=== PATIENT | female | born 1965 | race Caucasian/White ===

== ENCOUNTER → 2017-12-06 | Outpatient (CLI) | payer BC ==
--- NOTE | 2017-12-06 16:23 | MR ---
EXAMINATION TYPE: MR cspine/tspine wo con DATE OF EXAM: 12/06/2017 COMPARISON: NONE HISTORY: Thoracic spine pain/ Disc deg,cervical CONTRAST: Performed utilizing 0 mL intravenous Gadavist gadolinium contrast. TECHNIQUE: Multiplanar multiecho imaging on a 3.0 Nina magnet is performed through the cervical spin e. FINDINGS: The craniovertebral junction is normal. Vertebral body alignment is normal. Disc desicca tion is in the upper cervical spine. Some mild diffuse loss of disc height is within the mid cervical spine. C7-T1: No focal disc herniation or significant disc bulge is evident. No spinal canal stenosis or n eural foraminal stenosis is present. C6-7: Mild central focal bulge is present. Some increased signal centrally on T2 type sequences sugge stive small annular tear may be present. No disc herniation is evident. No cord contact is evident. N o spinal canal stenosis or neural foraminal stenosis is present.. C5-6: Mild broad-based disc bulge is present with anterior thecal sac flattening. This comes in close approximation with the spinal cord. No spinal canal stenosis present. Uncovertebral joint hypertroph y is present with mild right foraminal narrowing.. C4-5: No focal disc herniation or significant disc bulge is evident. No spinal canal stenosis or marcello ral foraminal stenosis is present. C3-4: No focal disc herniation or significant disc bulge is evident. No spinal canal stenosis or marcello ral foraminal stenosis is present. C2-3: No focal disc herniation or significant disc bulge is evident. No spinal canal stenosis or marcello ral foraminal stenosis is present. Spinal cord maintains normal signal through its visualized course. Vertebral body heights are preserv ed. IMPRESSIONS: 1. Mild degenerative disc changes C5-6 and C6-7 discussed above. EXAMINATION TYPE: MR cspine/tspine wo con DATE OF EXAM: 12/06/2017 COMPARISON: NONE HISTORY: Thoracic spine pain/ Disc deg,cervical CONTRAST: Performed utilizing 0 mL intravenous Gadavist gadolinium contrast. TECHNIQUE: Multiplanar, multiecho imaging on a 3.0 Nina magnet is performed through the thoracic spi ne. Spinal cord maintains normal signal through its visualized course. Vertebral body alignment is normal. Vertebral body heights are preserved. Disc heights are preserved. Minimal disc desiccation is present to the mid thoracic spine. T9-T10: Some mild right paracentral disc bulge has mild anterior thecal sac compression. No cord cont act is evident. No spinal canal stenosis is present. Right paracentral disc bulge at T8-9 is present with moderate anterior thecal sac compression. No cord contact is evident. No spinal canal stenosis i s evident. T7-8: There is right paracentral disc herniation with mild anterior thecal sac compression. No AP spi nal canal stenosis present. Neural foramen are patent. No spinal canal stenosis is evident. IMPRESSIONS: 1. Mild right paracentral disc bulge, T7-8, T8-9, T9-T10. Minimal herniation may be present T7-8 righ t paracentral region.
== END | disposition home or self-care (01) ==
LOC: RADMRIMAIN 12:53
PROVIDERS: ATTEND Family Medicine
DX: M51.24 Other intervertebral disc displacement, thoracic region (principal); M47.812 Spondylosis without myelopathy or radiculopathy, cervical region; M50.30 Other cervical disc degeneration, unspecified cervical region
CPT/HCPCS: 72141; 72146

== ENCOUNTER → 2019-01-27 | Outpatient (CLI) | payer BC ==
--- NOTE | 2019-01-27 14:57 | US ---
EXAMINATION TYPE: US kidneys/renal and bladder DATE OF EXAM: 01/27/2019 COMPARISON: MRI thoracic spine February 03, 2018. CLINICAL HISTORY: R10.9 Right flank pain. Right back pain EXAM MEASUREMENTS: Right Kidney: 9.3 x 4.7 x 4.6 cm Left Kidney: 9.6 x 4.6 x 4.2 cm Right Kidney: wnl Left Kidney: wnl Bladder: wnl, distended Bilateral Jets seen There is no evidence for hydronephrosis at this point in time. No nephrolithiasis is seen. No ana s are identified. The urinary bladder is not greatly distended. Bilateral ureteral jets are seen. Adjacent liver is heterogeneously hyperechoic IMPRESSION: No shadowing, renal calculi or hydronephrosis identified bilaterally on images saved.
== END | disposition home or self-care (01) ==
LOC: RADUSWWP 14:12
PROVIDERS: ATTEND Family Medicine
DX: R10.9 Unspecified abdominal pain (principal)
CPT/HCPCS: 76770

== ENCOUNTER → 2019-08-26 | Outpatient (CLI) | payer BC ==
--- NOTE | 2019-09-02 13:18 | MM ---
Reason for exam: additional evaluation requested from prior study. Last mammogram was performed 7 years and 11 months ago. History: Patient is postmenopausal. Took hormonal contraceptives for 6 years. Physical Findings: Nurse Summary: 2cm nodule in the left breast at 11 o'clock (nurse ts). [facility] Diagnostic Mammo w CAD JUDITH Bilateral CC and MLO view(s) were taken. Prior study comparison: September 29, 2011, mammogram, performed at [place]. August 14, 2008, mammogram, performed at [place]. The breast tissue is heterogeneously dense. This may lower the sensitivity of mammography. There are benign appearing round calcifications bilaterally. There is no discrete abnormality. These results were verbally communicated with the patient on 09/02/19. ASSESSMENT: Incomplete: need additional imaging evaluation, BI-RAD 0 RECOMMENDATION: Ultrasound of the left breast. (palpable)
--- NOTE | 2019-09-02 13:19 | USB ---
Reason for exam: additional evaluation requested from abnormal screening. History: Patient is postmenopausal. Took hormonal contraceptives for 6 years. US Breast Limited LT Left limited breast ultrasound including focal area of concern, retroareolar and axilla demonstrates no cystic or solid lesion seen. Benign left axillary lymph node end of study. These results were verbally communicated with the patient on 09/02/19. ASSESSMENT: Negative, BI-RAD 1 RECOMMENDATION: Routine screening mammogram of both breasts in 1 year. Manage on a clinical basis with regard to left palpable.
== END | disposition home or self-care (01) ==
LOC: RADMAMWWP 13:41
PROVIDERS: ATTEND Family Medicine
DX: R92.8 Other abnormal and inconclusive findings on diagnostic imaging of breast (principal)
CPT/HCPCS: 77066

== ENCOUNTER 2020-01-23 07:17 | Emergency (ER) | payer BC ==
[2020-01-23 07:23] VITALS: TEMP 99.8
[2020-01-23] MEDS ORDERED: SODIUM CHLORIDE 0.9% 1,000 ML IV SCH (07:45)
[2020-01-23 08:20] LABS: African American GFR (CKD) >90 (>60 ml/min/1.73 sqM); Anion Gap 6 mmol/L; Blood Urea Nitrogen 19 mg/dL (7-17); Calcium 9.6 mg/dL (8.4-10.2); Carbon Dioxide 29 mmol/L (22-30); Chloride 103 mmol/L (98-107); Glucose 116 mg/dL (74-99); Non-African American GFR(CKD) 87 (>60 ml/min/1.73 sqM); Potassium 3.7 mmol/L (3.5-5.1); Sodium 138 mmol/L (137-145)
[2020-01-23 08:24] LABS: Basophils % (A) 1 %; Eosinophils # (A) 0.1 k/uL (0-0.7); Eosinophils % (A) 2 %; HGB 12.5 gm/dL (11.4-16.0); Lymphocytes # (A) 1.6 k/uL (1.0-4.8); Lymphocytes % (A) 30 %; MCH 29.9 pg (25.0-35.0); MCHC 33.6 g/dL (31.0-37.0); Mean Platelet Volume 8.1; Monocytes # (A) 0.3 k/uL (0-1.0); Monocytes % (A) 5 %; Neutrophils # (A) 3.2 k/uL (1.3-7.7); Neutrophils % (A) 61 %; Platelet Count 208 k/uL (150-450); RBC 4.16 m/uL (3.80-5.40); RDW 12.5 % (11.5-15.5); WBC 5.2 k/uL (3.8-10.6)
--- NOTE | 2020-01-23 08:25 | XR ---
EXAMINATION TYPE: XR chest 1V portable DATE OF EXAM: 01/23/2020 COMPARISON: NONE HISTORY: Shortness of breath, covid PUI. TECHNIQUE: Single frontal view of the chest is obtained. FINDINGS: Minimal strand-like right basilar opacity overlying the right hemidiaphragm. Low lung volu mes are suboptimal. Cardiomediastinal silhouette is within normal limits. Osseous structures appear g rossly intact. No pneumothorax or sizable pleural effusion. IMPRESSION: Minimal strand-like right basilar opacity, likely atelectasis. Overall suboptimal lung v olumes.
[2020-01-23 08:26] VITALS: RESP 17
[2020-01-23 08:32] LABS: C Reactive Protein <5.0 mg/L (<10.0)
--- NOTE | 2020-01-23 08:44 | ED ---
General Adult HPI - General Chief complaint: Shortness of Breath Stated complaint: SOB Time Seen by Provider: 01/23/20 07:20 Source: patient Mode of arrival: EMS Limitations: no limitations - History of Present Illness Initial comments: Dictation was produced using [employer] dictation software. please excuse any grammatical, word or spelling errors. Chief Complaint: 54-year-old female past medical history of GERD dyslipidemia and chronic pain presents with myalgias, rhinorrhea sore throat and dyspnea. History of Present Illness: Patient is a 54-year-old female she presents today with sore throat, cough and dyspnea since waking this morning. Patient states that she felt fine last night. Patient has not had any recent travel. Denies any overt sick contacts. Patient has any pulmonary comorbidities. She does have a history of chronic pain. She is brought today by EMS. She lives at home with her who has not been showing any symptoms. States that her cough is nonproductive. She does have some mild pain with deep inspiration. Patient takes medications for depression and chronic pain. The ROS documented in this emergency department record has been reviewed and confirmed by me. Those systems with pertinent positive or negative responses have been documented in the HPI. All other systems are other negative and/or noncontributory. PHYSICAL EXAM: General Impression: Alert and oriented x3, not in acute distress HEENT: Normocephalic atraumatic, extra-ocular movements intact, pupils equal and reactive to light bilaterally, mucous membranes moist, no pharyngeal erythema Cardiovascular: Heart regular rate and rhythm, S1&S2 audible, no murmurs, rubs or gallops Chest: No respiratory distress, speaking in full sentences Abdomen: abdomen soft, non-tender, non-distended, no organomegaly Musculoskeletal: Pulses present and equal in all extremities, no peripheral edema Motor: no focal deficits noted Neurological: CN II-XII grossly intact, no focal motor or sensory deficits noted Skin: Intact with no visualized rashes Psych: Normal affect and mood ED course: 54-year-old female with URI type symptoms. Vital signs upon arrival shows temperature 99.8, respiratory signs within acceptable limits. She is well-appearing not showing any signs of respiratory distress. Laboratory evaluation obtained. CBC unremarkable. Metabolic panel is negative. There is slight elevated BUN to creatinine ratio with secondary dehydration. Influenza, group A strep is negative. Chest x-ray shows mild right lower basilar atelectasis. At this point there is some concern for Covid 19. However given benign appearing patient with negative labs She is in stable medical condition and will be discharged home. Currently we are not testing patient's for Covid 1950 will be discharged. Patient counseled on strict return precautions especially with increasing dyspnea.. Still to remain in quarantine for 14 days. She is understandable agreeable to disposition. - Related Data Home Medications Medication Instructions Recorded Confirmed Citalopram Hydrobromide 40 mg PO 1700 06/07/16 06/08/16 [Citalopram HBr] Gabapentin [Neurontin] 100 mg PO TID 06/07/16 06/08/16 Hydrocodone/Acetaminophen [S[place]on 1 tab PO TID PRN 06/07/16 06/08/16 10-325] Nucynta(Dose Unknown) 1 tab PO HS 06/07/16 06/08/16 Previous Rx's Medication Instructions Recorded Ibuprofen [Motrin] 600 mg PO Q6HR PRN #30 tab 06/08/16 Allergies Allergy/AdvReac Type Severity Reaction Status Date / Time codeine Allergy Nausea Verified 01/23/20 07:18 Review of Systems ROS Statement: Those systems with pertinent positive or pertinent negative responses have been documented in the HPI. ROS Other: All systems not noted in ROS Statement are negative. Past Medical History Past Medical History: GERD/Reflux, Hyperlipidemia Additional Past Medical History / Comment(s): migraines, pain in lower back and hands, herniated disk in back, bulging disk in neck History of Any Multi-Drug Resistant Organisms: None Reported Past Surgical History: Hernia Repair, Uterine Ablation Past Anesthesia/Blood Transfusion Reactions: Motion Sickness Past Psychological History: Depression Smoking Status: Former smoker Past Alcohol Use History: Rare Past Drug Use History: None Reported - Past Family History Mother Family Medical History: Cancer General Exam Limitations: no limitations Course Vital Signs 01/23/20 01/23/20 01/23/20 07:19 07:25 08:25 Temperature 99.8 F H Pulse Rate 79 69 Respiratory 18 18 17 Rate Blood Pressure 150/99 154/95 O2 Sat by Pulse 100 97 Oximetry Medical Decision Making - Lab Data Result diagrams: 01/23/20 08:05 01/23/20 07:57 Lab Results 01/23/20 01/23/20 01/23/20 Range/Units 07:57 07:57 07:57 WBC (3.8-10.6) k/uL RBC (3.80-5.40) m/uL Hgb (11.4-16.0) gm/dL Hct (34.0-46.0) % MCV (80.0-100.0) fL MCH (25.0-35.0) pg MCHC (31.0-37.0) g/dL RDW (11.5-15.5) % Plt Count (150-450) k/uL Neutrophils % % Lymphocytes % % Monocytes % % Eosinophils % % Basophils % % Neutrophils # (1.3-7.7) k/uL Lymphocytes # (1.0-4.8) k/uL Monocytes # (0-1.0) k/uL Eosinophils # (0-0.7) k/uL Basophils # (0-0.2) k/uL Sodium 138 (137-145) mmol/L Potassium 3.7 (3.5-5.1) mmol/L Chloride 103 (98-107) mmol/L Carbon Dioxide 29 (22-30) mmol/L Anion Gap 6 mmol/L BUN 19 H (7-17) mg/dL Creatinine 0.78 (0.52-1.04) mg/dL Est GFR (CKD-EPI)AfAm >90 (>60 ml/min/1.73 sqM) Est GFR (CKD-EPI)NonAf 87 (>60 ml/min/1.73 sqM) Glucose 116 H (74-99) mg/dL Calcium 9.6 (8.4-10.2) mg/dL C-Reactive Protein <5.0 (<10.0) mg/L Influenza Type A RNA Not Detected (Not Detectd) Influenza Type B (PCR) Not Detected (Not Detectd) Group A Strep Rapid Negative (Negative) 01/23/20 Range/Units 08:05 WBC 5.2 (3.8-10.6) k/uL RBC 4.16 (3.80-5.40) m/uL Hgb 12.5 (11.4-16.0) gm/dL Hct 37.0 (34.0-46.0) % MCV 89.0 (80.0-100.0) fL MCH 29.9 (25.0-35.0) pg MCHC 33.6 (31.0-37.0) g/dL RDW 12.5 (11.5-15.5) % Plt Count 208 (150-450) k/uL Neutrophils % 61 % Lymphocytes % 30 % Monocytes % 5 % Eosinophils % 2 % Basophils % 1 % Neutrophils # 3.2 (1.3-7.7) k/uL Lymphocytes # 1.6 (1.0-4.8) k/uL Monocytes # 0.3 (0-1.0) k/uL Eosinophils # 0.1 (0-0.7) k/uL Basophils # 0.0 (0-0.2) k/uL Sodium (137-145) mmol/L Potassium (3.5-5.1) mmol/L Chloride (98-107) mmol/L Carbon Dioxide (22-30) mmol/L Anion Gap mmol/L BUN (7-17) mg/dL Creatinine (0.52-1.04) mg/dL Est GFR (CKD-EPI)AfAm (>60 ml/min/1.73 sqM) Est GFR (CKD-EPI)NonAf (>60 ml/min/1.73 sqM) Glucose (74-99) mg/dL Calcium (8.4-10.2) mg/dL C-Reactive Protein (<10.0) mg/L Influenza Type A RNA (Not Detectd) Influenza Type B (PCR) (Not Detectd) Group A Strep Rapid (Negative) Disposition Clinical Impression: URI (upper respiratory infection) Disposition: HOME SELF-CARE Condition: Good Instructions (If sedation given, give patient instructions): Upper Respiratory Infection (ED) Additional Instructions: Today you were evaluated for symptoms consistent with upper respiratory infection. There is concern that perhaps your symptomatology may represent Covid 19. Your are stable for discharge however it is instructed to to seek immediate medical attention especially if you develop worsening symptoms especially respiratory distress. In the meantime please remain in quarantine for 14 days. For any other questions please contact Leigh for here in emergency department or [facility] at [phone] Is patient prescribed a controlled substance at d/c from ED?: No Referrals: Frankie Brown MD [Primary Care Provider] - 1-2 days Time of Disposition: 08:44
[2020-01-23 08:57] VITALS: BP 150/92; PULSE 69
== END 2020-01-23 09:02 | disposition home or self-care (01) ==
LOC: EC 07:17
DX: J06.9 Acute upper respiratory infection, unspecified (principal); J98.11 Atelectasis; R79.89 Other specified abnormal findings of blood chemistry; E86.0 Dehydration; K21.9 Gastro-esophageal reflux disease without esophagitis; E78.5 Hyperlipidemia, unspecified; F32.9 Major depressive disorder, single episode, unspecified; G43.909 Migraine, unspecified, not intractable, without status migrainosus; G89.29 Other chronic pain; M54.9 Dorsalgia, unspecified; Z79.891 Long term (current) use of opiate analgesic; Z79.899 Other long term (current) drug therapy; Z88.5 Allergy status to narcotic agent; Z87.891 Personal history of nicotine dependence
CPT/HCPCS: 36415; 71045; 80048; 84145; 85025; 86140; 87081; 87430; 87502; 96360; 99285

== ENCOUNTER → 2020-05-10 | Outpatient (CLI) | payer BC ==
--- NOTE | 2020-05-10 10:55 | CT ---
EXAMINATION TYPE: CT abdomen pelvis w con DATE OF EXAM: 05/10/2020 COMPARISON: None HISTORY: LUQ pain, constipation, diarrhea CT DLP: 715 mGycm Automated exposure control for dose reduction was used. TECHNIQUE: Helical acquisition of images from the lung bases through the pelvis have been completed. CONTRAST: Performed without Oral Contrast and with IV Contrast, patient injected with 100 mL of Isovue 300. FINDINGS: There is a small hiatal hernia. LUNG BASES: There is a posterior diaphragmatic hernia on the left containing fat, some minimal basila r scarring, atelectatic changes are present AORTA: No significant abnormality is appreciated. LIVER/GB: Decreased attenuation within the liver may be due to hepatic steatosis, gallbladder is with in normal limits PANCREAS: No significant abnormality is seen. SPLEEN: No significant abnormality is seen. ADRENALS: No significant abnormality is seen. KIDNEYS: No significant abnormality is seen. REPRODUCTIVE ORGANS: Small calcification within the fundus of the uterus may represent fibroid BOWEL: There is no appendicitis. No evident bowel obstruction. Some retained fecal debris present wi thin the colon. FREE AIR: No Free Air visible. ASCITES: None visible. PELVIC ADENOPATHY: None visualized. RETROPERITONEAL ADENOPATHY: No Retroperitoneal Adenopathy visible. URINARY BLADDER: No significant abnormality is seen. OSSEOUS STRUCTURES: There are some degenerative disc changes noted in the lower lumbar spine. IMPRESSION: SMALL HIATAL HERNIA. HEPATIC STEATOSIS. ADDITIONAL FINDINGS ABOVE.
[2020-05-10 11:23] LABS: Albumin 4.5 g/dL (3.5-5.0); Calcium 9.4 mg/dL (8.4-10.2); Potassium 4.2 mmol/L (3.5-5.1); Total Bilirubin 0.7 mg/dL (0.2-1.3); Total Protein 6.8 g/dL (6.3-8.2)
== END | disposition home or self-care (01) ==
LOC: RADCTMAIN 09:56
PROVIDERS: ATTEND Family Medicine
DX: K44.9 Diaphragmatic hernia without obstruction or gangrene (principal); K76.0 Fatty (change of) liver, not elsewhere classified
CPT/HCPCS: 80053; 74177; 36415; Q9967

== ENCOUNTER 2020-05-20 09:47 | Day surgery (SDC) | payer BC ==
[2020-05-19 10:17] VITALS: BMI 31.3
[~2020-05-20 09:47] MED LIST: LACTATED RINGERS 1,000 ML IV SCH
[2020-05-20 10:08] VITALS: RESP 16; TEMP 99
[2020-05-20] MEDS ORDERED: LIDOCAINE 1% (10MG/ML) FOR IV START INTRADERMA ONE (10:19)
[2020-05-20] MEDS ORDERED: PROPOFOL 10 MG/ML 20 ML VIAL IV ONE (10:30)
--- NOTE | 2020-05-20 11:09 | P.PCN ---
Date of Procedure: 05/20/20 Description of Procedure: BRIEF HISTORY: Patient is a 54-year-old female presenting for outpatient colonoscopy for screening for malignant neoplasm of the colon. No prior colonoscopy. No change in bowel habits, blood per rectum or abdominal pain. PROCEDURE PERFORMED: Colonoscopy with polypectomy. PREOPERATIVE DIAGNOSIS: Screening for malignant neoplasm colon, no prior colonoscopy. ESTIMATED BLOOD LOSS: Minimal. IV sedation per Anesthesia. PROCEDURE: After informed consent was obtained, the patient, was brought into the endoscopy unit. IV sedation was administered by Anesthesia under continuous monitoring. Digital rectal examination was normal. Initially the Olympus CF-190 flexible video colonoscope was then inserted in the rectum, gradually advanced into the cecum without any difficulty. Careful examination was performed as the scope was gradually being withdrawn. Ileocecal valve and the appendiceal orifice were visualized and appeared normal. Prep was excellent. Mucosa of the cecum, ascending colon, transverse colon, descending colon, sigmoid colon, and rectum appeared normal. A few scattered diverticula noted throughout the colon. Diminutive 3 mm sigmoid polyp located in the distal sigmoid is completely with cold forcep polypectomy. Retroflexion was performed in the rectum and no lesions were seen. The patient tolerated the procedure well. IMPRESSION: Diminutive sigmoid polyp removed with cold forcep polypectomy. Mouth pandiverticulosis. RECOMMENDATIONS: Findings of this examination were discussed with the patient. Okay to resume diet. Okay to resume medication. Await pathology from polypectomy. Would recommend repeat colonoscopy in 7 years pending pathology from polypectomy.
[2020-05-20 11:25] VITALS: BP 101/65; PULSE 65
== END 2020-05-20 12:02 | disposition home or self-care (01) ==
LOC: ORWHC2ENDO 09:47
PROVIDERS: ATTEND Internal Medicine
DX: Z12.11 Encounter for screening for malignant neoplasm of colon (principal); K63.5 Polyp of colon; K57.30 Diverticulosis of large intestine without perforation or abscess without bleeding; E78.5 Hyperlipidemia, unspecified; G43.909 Migraine, unspecified, not intractable, without status migrainosus; M54.2 Cervicalgia; Z87.891 Personal history of nicotine dependence; Z88.5 Allergy status to narcotic agent; Z79.891 Long term (current) use of opiate analgesic; Z79.899 Other long term (current) drug therapy; Z98.890 Other specified postprocedural states; Z87.19 Personal history of other diseases of the digestive system; Z97.2 Presence of dental prosthetic device (complete) (partial)
CPT/HCPCS: 88305; 45380; J2704

== ENCOUNTER 2021-02-17 16:45 | Observation (INO) | payer BC ==
[2021-02-17] MEDS ORDERED: ASPIRIN 81 MG PO STA (17:38)
[2021-02-17] MEDS ORDERED: NITROGLYCERIN OINT 1 INCH/GM PACKET TOPICAL STA (17:39)
--- NOTE | 2021-02-17 17:54 | ED ---
General Adult HPI - General Chief complaint: Chest Pain Stated complaint: Chest pain Time Seen by Provider: 02/17/21 16:45 Source: patient, RN notes reviewed, old records reviewed Mode of arrival: EMS Limitations: no limitations - History of Present Illness Initial comments: This is a 55-year-old female presents emergency Department complaining of anter ior chest pressure which radiates around to call on the right to her back. Patient states it started suddenly about an hour ago. Patient denies any shortness of breath per patient denies any pain in the arm or neck or jaw. Patient denies any diaphoretic episodes. Patient denies any vomiting. Patient states she is mildly nauseated. Patient states she was resting watching TV when it all started. Patient denies any diabetes hypertension or high cholesterol. Patient denies any smoking history. Patient has any family history of heart disease. Patient denies any lower abdominal pain but she states there is some tenderness in the right upper quadrant area. Patient denies any swelling to the legs or calf tenderness. - Related Data Home Medications Medication Instructions Recorded Confirmed Citalopram Hydrobromide 40 mg PO DAILY@1800 06/07/16 02/17/21 [Citalopram HBr] Gabapentin [Neurontin] 200 mg PO TID 06/07/16 02/17/21 Hydrocodone/Acetaminophen [C[place] 1 tab PO TID PRN 06/07/16 02/17/21 10-325] buPROPion HCL [Wellbutrin XL] 150 mg PO DAILY 02/17/21 02/17/21 Allergies Allergy/AdvReac Type Severity Reaction Status Date / Time codeine Allergy Nausea Verified 02/17/21 17:45 Review of Systems ROS Statement: Those systems with pertinent positive or pertinent negative responses have been documented in the HPI. ROS Other: All systems not noted in ROS Statement are negative. Past Medical History Past Medical History: GERD/Reflux, Hyperlipidemia Additional Past Medical History / Comment(s): Migraines, pain in lower back and hands, herniated disk in back, bulging disc in neck. History of Any Multi-Drug Resistant Organisms: None Reported Past Surgical History: Hernia Repair, Uterine Ablation Past Anesthesia/Blood Transfusion Reactions: Motion Sickness Past Psychological History: Depression Smoking Status: Former smoker Past Alcohol Use History: Rare Past Drug Use History: Marijuana - Past Family History Mother Family Medical History: Cancer General Exam - General Exam Comments Initial Comments: GENERAL: Patient is well-developed and well-nourished. Patient is nontoxic and well- hydrated and is in mild distress. ENT: Neck is soft and supple. No significant lymphadenopathy is noted. Oropharynx is clear. Moist mucous membranes. Neck has full range of motion without eliciting any pain. EYES: The sclera were anicteric and conjunctiva were pink and moist. Extraocular movements were intact and pupils were equal round and reactive to light. Eye lids were unremarkable. PULMONARY: Unlabored respirations. Good breath sounds bilaterally. No audible rales rhonchi or wheezing was noted. CARDIOVASCULAR: There is a regular rate and rhythm without any murmurs gallops or rubs. ABDOMEN: Soft and nontender with normal bowel sounds. SKIN: Skin is clear with no lesions or rashes and otherwise unremarkable. NEUROLOGIC: Patient is alert and oriented x3. Cranial nerves II through XII are grossly intact. Motor and sensory are also intact. Normal speech, volume and content. Symmetrical smile. MUSCULOSKELETAL: Normal extremities with adequate strength and full range of motion. Patient has no calf tenderness. Patient has no edema. LYMPHATICS: No significant lymphadenopathy is noted PSYCHIATRIC: Normal psychiatric evaluation. Limitations: no limitations Course Vital Signs 02/17/21 02/17/21 02/17/21 16:47 16:51 16:54 Temperature 98.9 F Pulse Rate 89 Pulse Rate [ 86 Inspector Poising ] Respiratory 18 18 16 Rate Blood Pressure 165/96 O2 Sat by Pulse 91 L Oximetry 02/17/21 19:11 Temperature Pulse Rate 84 Pulse Rate [ Inspector Poising ] Respiratory 16 Rate Blood Pressure 156/90 O2 Sat by Pulse 95 Oximetry Medical Decision Making - Medical Decision Making Patient's EKG shows normal sinus rhythm at 79 bpm IA interval 166 dresses 70 QT interval 376 QTC is 431. Patient's EKG shows no ST segment elevation or depression. Chest x-ray shows no acute abnormality. Patient received Toradol emergency department was feeling better. Ultrasound showed a dilated common bile duct but no bladder wall thickening no edema around the gallbladder. Patient's liver enzymes were all normal as well. I spoke with sounds of this is a agreed to admit the patient admitted the patient wrote admitting orders. Consult to cardiology. - Lab Data Result diagrams: 02/17/21 17:46 02/17/21 17:46 Lab Results 02/17/21 02/17/21 02/17/21 Range/Units 17:46 17:46 17:46 WBC 5.0 (3.8-10.6) k/uL RBC 4.63 (3.80-5.40) m/uL Hgb 14.2 (11.4-16.0) gm/dL Hct 40.5 (34.0-46.0) % MCV 87.4 (80.0-100.0) fL MCH 30.7 (25.0-35.0) pg MCHC 35.1 (31.0-37.0) g/dL RDW 12.4 (11.5-15.5) % Plt Count 200 (150-450) k/uL MPV 8.5 Neutrophils % 57 % Lymphocytes % 33 % Monocytes % 5 % Eosinophils % 3 % Basophils % 1 % Neutrophils # 2.9 (1.3-7.7) k/uL Lymphocytes # 1.7 (1.0-4.8) k/uL Monocytes # 0.2 (0-1.0) k/uL Eosinophils # 0.1 (0-0.7) k/uL Basophils # 0.0 (0-0.2) k/uL PT 9.9 (9.0-12.0) sec INR 0.9 (<1.2) APTT 22.3 (22.0-30.0) sec D-Dimer 0.21 (<0.60) mg/L FEU Sodium 135 L (137-145) mmol/L Potassium 5.0 (3.5-5.1) mmol/L Chloride 106 (98-107) mmol/L Carbon Dioxide 25 (22-30) mmol/L Anion Gap 4 mmol/L BUN 14 (7-17) mg/dL Creatinine 0.74 (0.52-1.04) mg/dL Est GFR (CKD-EPI)AfAm >90 (>60 ml/min/1.73 sqM) Est GFR (CKD-EPI)NonAf >90 (>60 ml/min/1.73 sqM) Glucose 87 (74-99) mg/dL Calcium 8.7 (8.4-10.2) mg/dL Magnesium 2.1 (1.6-2.3) mg/dL Total Bilirubin 0.8 (0.2-1.3) mg/dL AST 153 H (14-36) U/L ALT 43 H (4-34) U/L Alkaline Phosphatase 57 (38-126) U/L Troponin I (0.000-0.034) ng/mL Total Protein 6.1 L (6.3-8.2) g/dL Albumin 3.7 (3.5-5.0) g/dL 02/17/21 Range/Units 17:46 WBC (3.8-10.6) k/uL RBC (3.80-5.40) m/uL Hgb (11.4-16.0) gm/dL Hct (34.0-46.0) % MCV (80.0-100.0) fL MCH (25.0-35.0) pg MCHC (31.0-37.0) g/dL RDW (11.5-15.5) % Plt Count (150-450) k/uL MPV Neutrophils % % Lymphocytes % % Monocytes % % Eosinophils % % Basophils % % Neutrophils # (1.3-7.7) k/uL Lymphocytes # (1.0-4.8) k/uL Monocytes # (0-1.0) k/uL Eosinophils # (0-0.7) k/uL Basophils # (0-0.2) k/uL PT (9.0-12.0) sec INR (<1.2) APTT (22.0-30.0) sec D-Dimer (<0.60) mg/L FEU Sodium (137-145) mmol/L Potassium (3.5-5.1) mmol/L Chloride (98-107) mmol/L Carbon Dioxide (22-30) mmol/L Anion Gap mmol/L BUN (7-17) mg/dL Creatinine (0.52-1.04) mg/dL Est GFR (CKD-EPI)AfAm (>60 ml/min/1.73 sqM) Est GFR (CKD-EPI)NonAf (>60 ml/min/1.73 sqM) Glucose (74-99) mg/dL Calcium (8.4-10.2) mg/dL Magnesium (1.6-2.3) mg/dL Total Bilirubin (0.2-1.3) mg/dL AST (14-36) U/L ALT (4-34) U/L Alkaline Phosphatase (38-126) U/L Troponin I <0.012 (0.000-0.034) ng/mL Total Protein (6.3-8.2) g/dL Albumin (3.5-5.0) g/dL Disposition Clinical Impression: Chest pain, Right upper quadrant abdominal pain Disposition: ADMITTED IP TO THIS HOSP Referrals: Frankie Brwon MD [Primary Care Provider] - 1-2 days Time of Disposition: 20:19
[2021-02-17 17:58] LABS: Basophils % (A) 1 %; Eosinophils # (A) 0.1 k/uL (0-0.7); Eosinophils % (A) 3 %; HCT 40.5 % (34.0-46.0); HGB 14.2 gm/dL (11.4-16.0); Lymphocytes # (A) 1.7 k/uL (1.0-4.8); Lymphocytes % (A) 33 %; MCH 30.7 pg (25.0-35.0); MCHC 35.1 g/dL (31.0-37.0); MCV 87.4 fL (80.0-100.0); Mean Platelet Volume 8.5; Monocytes # (A) 0.2 k/uL (0-1.0); Monocytes % (A) 5 %; Neutrophils # (A) 2.9 k/uL (1.3-7.7); Neutrophils % (A) 57 %; Platelet Count 200 k/uL (150-450); RBC 4.63 m/uL (3.80-5.40); RDW 12.4 % (11.5-15.5)
[2021-02-17 18:08] LABS: ALT 43 U/L (4-34); AST 153 U/L (14-36); African American GFR (CKD) >90 (>60 ml/min/1.73 sqM); Albumin 3.7 g/dL (3.5-5.0); Alkaline Phosphatase 57 U/L (38-126); Anion Gap 4 mmol/L; Blood Urea Nitrogen 14 mg/dL (7-17); Calcium 8.7 mg/dL (8.4-10.2); Carbon Dioxide 25 mmol/L (22-30); Chloride 106 mmol/L (98-107); Glucose 87 mg/dL (74-99); Magnesium 2.1 mg/dL (1.6-2.3); Non-African American GFR(CKD) >90 (>60 ml/min/1.73 sqM); Sodium 135 mmol/L (137-145); Total Bilirubin 0.8 mg/dL (0.2-1.3); Total Protein 6.1 g/dL (6.3-8.2)
[2021-02-17 18:14] LABS: INR 0.9 (<1.2); Partial Thromboplastin Time 22.3 sec (22.0-30.0); Prothrombin Time 9.9 sec (9.0-12.0)
--- NOTE | 2021-02-17 18:42 | XR ---
EXAMINATION TYPE: XR chest 2V DATE OF EXAM: 02/17/2021 CLINICAL HISTORY: Chest Pain. TECHNIQUE: Frontal and lateral view of the chest. COMPARISON: 01/22/2021 FINDINGS: The cardiomediastinal silhouette is within normal limits for size. Pulmonary vasculature i s normal. There is no focal air space opacity. No pleural effusion. No pneumothorax seen. No acute d isplaced osseous fracture. IMPRESSION: No acute cardiopulmonary process.
[2021-02-17] MEDS ORDERED: KETOROLAC 15 MG/ML 1 ML VIAL IVP STA ×2 (19:22→23:00)
--- NOTE | 2021-02-17 20:03 | US ---
EXAMINATION TYPE: US gallbladder DATE OF EXAM: 02/17/2021 COMPARISON: NONE CLINICAL HISTORY: Right upper quadrant abdominal pain. Chest pain and abd pain very painful today EXAM MEASUREMENTS: Liver Length: 15.1 cm Gallbladder Wall: 0.3 cm CBD: 0.8 cm Right Kidney: 9.5 x 3.7 x 4.0 cm Pancreas: Visualized portions normal. Liver: Normal. Gallbladder: Cholelithiasis. There is no gallbladder wall thickening or pericholecystic edema. Felt Puller reports positive sonographic Ramesh sign. CBD: Dilated up to 8 mm. Right Kidney: No hydronephrosis. IMPRESSION: 1. Cholelithiasis. There is dilatation of the common bile duct and positive sonographic Ramesh sign. Choledocholithiasis not excluded. Recommend follow-up with MRI MRCP. 2. Findings of acute cholecystitis can also be further evaluated on MRI follow-up, however no gallbl adder wall thickening or pericholecystic edema is seen.
[2021-02-17] MEDS ORDERED: NITROGLYCERIN SL TABS 0.4 MG TAB SUBLINGUAL PRN (20:19)
--- NOTE | 2021-02-18 01:32 | P.HPIM ---
History of Present Illness H&P Date: 02/18/21 The patient is a 55-year-old female with a PMH of lumbar DJD and GERD who presented to the emergency room with complaints of epigastric discomfort. The patient reports that she was in her usual state of health until about 2 PM when she suddenly developed a pressure-like upper abdominal discomfort which was distributed in the bandlike fashion throughout her entire upper abdomen. She notes that she was sitting on her couch watching television when she developed this pain. It was associated with nausea but without palpitations, diaphoresis, dizziness. Reports that she may have had pain of similar nature but it was never of this intensity in the past. Patient also notes that she has had rec urrent episodes of right upper quadrant abdominal pain over the past 2 years for which she has been seen at her primary multiple times and also underwent a colonoscopy during which 2 polyps were removed. Reports that at the time of interview her pain had improved to a 3 out of 10. In the emergency room, the patient underwent an extensive evaluation with a right upper quadrant ultrasound showing cholelithiasis along with dilatation of common bile duct with positive Ramesh sign with choledocholithiasis not excluded. No gallbladder wall thickening or pericholecystic fluid was noted. Laboratory evaluation revealed transaminitis with AST 153 and ALT 43, with troponin less than 0.012. EKG rev ealed normal sinus rhythm at [address]/T-wave changes noted as reviewed by me. Chest x-ray was unremarkable. Review of Systems Pertinent positives and negatives as discussed in HPI, a complete review of systems was performed and all other systems are negative. Past Medical History Past Medical History: GERD/Reflux, Hyperlipidemia Additional Past Medical History / Comment(s): Migraines, pain in lower back and hands, herniated disk in back, bulging disc in neck. History of Any Multi-Drug Resistant Organisms: None Reported Past Surgical History: Hernia Repair, Uterine Ablation Past Anesthesia/Blood Transfusion Reactions: Motion Sickness Past Psychological History: Depression Smoking Status: Former smoker Past Alcohol Use History: Rare Past Drug Use History: Marijuana - Past Family History Mother Family Medical History: Cancer Medications and Allergies Home Medications Medication Instructions Recorded Confirmed Type Citalopram Hydrobromide 40 mg PO DAILY@1800 06/07/16 02/17/21 History [Citalopram HBr] Gabapentin [Neurontin] 200 mg PO TID 06/07/16 02/17/21 History Hydrocodone/Acetaminophen [[place] 1 tab PO TID PRN 06/07/16 02/17/21 History 10-325] buPROPion HCL [Wellbutrin XL] 150 mg PO DAILY 02/17/21 02/17/21 History Allergies Allergy/AdvReac Type Severity Reaction Status Date / Time codeine Allergy Nausea Verified 02/17/21 17:45 Physical Exam Vitals: Vital Signs Temp Pulse Pulse Resp BP Pulse Ox 02/17/21 19:11 84 16 156/90 95 02/17/21 16:54 86 16 02/17/21 16:51 89 18 165/96 91 L 02/17/21 16:47 98.9 F 18 Intake and Output 02/17/21 02/17/21 02/17/21 06:59 14:59 22:59 Other: Weight 77.111 kg General: non toxic, no distress, appears at stated age, normal weight Derm: no unusual rashes/lesions no unusual ecchymoses, warm, dry Head: atraumatic, normocephalic, symmetric Eyes: EOMI, no lid lag, anicteric sclera, pupils equal round reactive to light ENT: Nose and ears atraumatic, no thrush, no pharyngeal erythema Neck: No thyromegaly, no cervical lymphadenopathy, trachea midline, supple Mouth: no lip lesion, mucus membranes moist Cardiovascular: S1S2 reg, no murmur, positive posterior tibial pulse bilateral, no edema, capillary refill less than 2 seconds Lungs: CTA bilateral, no rhonchi, no rales , no accessory muscle use Abdominal: soft, mild right upper quadrant tenderness, no guarding, no appreciable organomegaly, normal bowel sounds Ext: no gross muscle atrophy, muscle strength 5 out of 5 in all 4 extremities grossly, no contractures, Neuro: CN II-XI grossly intact, light touch intact all 4 extremities, finger to nose within normal limits, Psych: Alert, oriented, appropriate affect Results CBC & Chem 7: 02/17/21 17:46 02/17/21 17:46 Labs: Abnormal Lab Results - Last 24 Hours (Table) 02/17/21 Range/Units 17:46 Sodium 135 L (137-145) mmol/L AST 153 H (14-36) U/L ALT 43 H (4-34) U/L Total Protein 6.1 L (6.3-8.2) g/dL Assessment and Plan Plan: Epigastric and right upper quadrant discomfort, cardiac versus gallbladder pathology -Cardiology consult -Trend troponin -Cardiac monitoring -Consult GI for MRCP/ERCP -Pain control for now -Monitor LFTs -Nothing by mouth for now Chronic conditions: Lumbar DJD with neuropathy -Continue with home medications DVT prophylaxis -Heparin subq The patient is admitted with an anticipated less than 2 midnight stay for evaluation of abdominal pain CODE STATUS: Full Code Discussed with: Patient Anticipated discharge date: in am Anticipated discharge place: home A total of 40 minutes was spent on the care of this complex patient more than 50% of the time was spent in counseling and care coordination.
[2021-02-18] MEDS: NITROGLYCERIN OINT 1 INCH/GM PACKET TOPICAL SCH ×4 (01:53→18:23)
[2021-02-18 08:15] LABS: Cholesterol 173 mg/dL (<200); HDL Cholesterol 45 mg/dL (40-60); LDL Cholesterol,Calculated 109 mg/dL (0-99); Triglycerides 96 mg/dL (<150)
[2021-02-18] MEDS: GABAPENTIN 100 MG CAP PO SCH ×3 (08:37→22:14)
[2021-02-18] MEDS: HEPARIN SODIUM,PORCINE/PF 5,000 UNIT/0.5 ML SYRINGE SQ SCH ×3 (08:38→22:13)
[2021-02-18] MEDS ORDERED: ASPIRIN 325 MG TAB PO SCH (09:00)
[2021-02-18 09:01] LABS: ALT 388 U/L (4-34); African American GFR (CKD) 65 (>60 ml/min/1.73 sqM); Albumin 3.3 g/dL (3.5-5.0); Albumin/Globulin Ratio 1.6; Alkaline Phosphatase 129 U/L (38-126); Anion Gap 3 mmol/L; Blood Urea Nitrogen 21 mg/dL (7-17); Calcium 8.8 mg/dL (8.4-10.2); Carbon Dioxide 32 mmol/L (22-30); Chloride 104 mmol/L (98-107); Globulin 2.1 g/dL; Glucose 98 mg/dL (74-99); Lipase 132 U/L (23-300); Non-African American GFR(CKD) 57 (>60 ml/min/1.73 sqM); Potassium 4.3 mmol/L (3.5-5.1); Sodium 139 mmol/L (137-145); Total Bilirubin 0.6 mg/dL (0.2-1.3); Total Protein 5.4 g/dL (6.3-8.2)
--- NOTE | 2021-02-18 09:02 | P.CRDCN ---
History of Present Illness Consult date: 02/18/21 Chief complaint: Epigastric discomfort History of present illness: This is a pleasant 55-year-old female patient with a past medical history sign ificant for arthritis and degenerative joint disease who uses nonsteroid anti- inflammatory but no prior cardiac or medical history beside that presented to the emergency department complaining of epigastric discomfort. She was in her usual state of health where she was at home watching TV when suddenly she developed chest discomfort as a pressure/and in the lower chest and upper abdomen with radiation to the back. No radiation to the left arm or neck or shoulders. No associated symptoms of sweating or dizziness or lightheadedness or any presyncope or syncope. Because of that the patient decided to come to the emergency department. In the ER she underwent a workup including troponin came in to be unremarkable and EKG and that showed normal sinus rhythm without any ischemic or significant ST or T-wave abnormalities. She underwent an ultrasound of the abdomen which revealed dilated common bile duct with codeine the cases. Ramesh sign was positive as well. Currently the patient is in process to be seen by the gastrointestinal service. As a matter of fact she does have epigastric and right upper quadrant tenderness on examination was positive Ramesh sign this morning. The rest of her blood work overall came in to be unremarkable. Past Medical History Past Medical History: GERD/Reflux, Hyperlipidemia Additional Past Medical History / Comment(s): Migraines, pain in lower back and hands, herniated disk in back, bulging disc in neck. History of Any Multi-Drug Resistant Organisms: None Reported Past Surgical History: Hernia Repair, Uterine Ablation Past Anesthesia/Blood Transfusion Reactions: Motion Sickness Past Psychological History: Depression Smoking Status: Former smoker Past Alcohol Use History: Rare Past Drug Use History: Marijuana - Past Family History Mother Family Medical History: Cancer Medications and Allergies Home Medications Medication Instructions Recorded Confirmed Type Citalopram Hydrobromide 40 mg PO DAILY@1800 06/07/16 02/17/21 History [Citalopram HBr] Gabapentin [Neurontin] 200 mg PO TID 06/07/16 02/17/21 History Hydrocodone/Acetaminophen [[place] 1 tab PO TID PRN 06/07/16 02/17/21 History 10-325] buPROPion HCL [Wellbutrin XL] 150 mg PO DAILY 02/17/21 02/17/21 History Allergies Allergy/AdvReac Type Severity Reaction Status Date / Time codeine Allergy Nausea Verified 02/17/21 17:45 Physical Exam Vitals: Vital Signs Temp Pulse Pulse Pulse Resp BP BP 02/18/21 07:56 02/18/21 07:00 97.9 F 70 19 105/50 02/18/21 02:00 98.2 F 80 16 116/76 02/18/21 01:53 73 84 16 02/17/21 23:22 73 84 16 02/17/21 22:31 98.1 F 84 16 145/96 02/17/21 21:47 73 16 128/89 02/17/21 21:27 98.9 F 73 16 02/17/21 21:00 74 16 126/86 02/17/21 19:11 84 16 156/90 02/17/21 16:54 86 16 02/17/21 16:51 89 18 165/96 02/17/21 16:47 98.9 F 18 Pulse Ox 02/18/21 07:56 94 L 02/18/21 07:00 95 02/18/21 02:00 96 02/18/21 01:53 02/17/21 23:22 02/17/21 22:31 95 02/17/21 21:47 95 02/17/21 21:27 95 02/17/21 21:00 95 02/17/21 19:11 95 02/17/21 16:54 02/17/21 16:51 91 L 02/17/21 16:47 Intake and Output 02/17/21 02/18/21 02/18/21 22:59 06:59 14:59 Intake Total 200 Balance 200 Intake: Oral 200 Other: Voiding Method Toilet Toilet # Voids 1 2 Weight 77.111 kg - Constitutional General appearance: no acute distress - Respiratory Respiratory: bilateral: CTA - Cardiovascular Rhythm: regular Heart sounds: normal: S1, S2 Results 02/17/21 17:46 02/17/21 17:46 Cardiac Enzymes 02/17/21 02/17/21 02/17/21 Range/Units 17:46 17:46 20:52 AST 153 H (14-36) U/L Troponin I <0.012 <0.012 (0.000-0.034) ng/mL 02/18/21 Range/Units 00:27 AST (14-36) U/L Troponin I <0.012 (0.000-0.034) ng/mL Coagulation 02/17/21 Range/Units 17:46 PT 9.9 (9.0-12.0) sec APTT 22.3 (22.0-30.0) sec Lipids 02/18/21 Range/Units 06:53 Triglycerides 96 (<150) mg/dL Cholesterol 173 (<200) mg/dL HDL Cholesterol 45 (40-60) mg/dL CBC 02/17/21 Range/Units 17:46 WBC 5.0 (3.8-10.6) k/uL RBC 4.63 (3.80-5.40) m/uL Hgb 14.2 (11.4-16.0) gm/dL Hct 40.5 (34.0-46.0) % Plt Count 200 (150-450) k/uL Comprehensive Metabolic Panel 02/17/21 Range/Units 17:46 Sodium 135 L (137-145) mmol/L Potassium 5.0 (3.5-5.1) mmol/L Chloride 106 (98-107) mmol/L Carbon Dioxide 25 (22-30) mmol/L BUN 14 (7-17) mg/dL Creatinine 0.74 (0.52-1.04) mg/dL Glucose 87 (74-99) mg/dL Calcium 8.7 (8.4-10.2) mg/dL AST 153 H (14-36) U/L ALT 43 H (4-34) U/L Alkaline Phosphatase 57 (38-126) U/L Total Protein 6.1 L (6.3-8.2) g/dL Albumin 3.7 (3.5-5.0) g/dL Current Medications Generic Name Dose Route Start Last Admin Trade Name Freq PRN Reason Stop Dose Admin Hydrocodone Bitart/Acetaminophen 1 each 02/18/21 01:31 Hydrocodone/Apap 10-325mg 1 Each Tab PO TID PRN Pain Aspirin 325 mg 02/18/21 09:00 02/18/21 08:37 Aspirin 325 Mg Tab PO 325 mg DAILY ZARINA Administration Citalopram Hydrobromide 40 mg 02/18/21 18:00 Citalopram Hydrobromide 20 Mg Tab PO DAILY@1800 ZARINA Gabapentin 200 mg 02/18/21 09:00 02/18/21 08:37 Gabapentin 100 Mg Cap PO 200 mg TID ZARINA Administration Heparin Sodium (Porcine) 5,000 unit 02/18/21 08:00 02/18/21 08:38 Heparin Sodium,Porcine/Pf 5,000 Unit/0.5 Ml Syringe SQ 5,000 unit Q8HR ZARINA Administration Nitroglycerin 0.4 mg 02/17/21 20:19 Nitroglycerin Sl Tabs 0.4 Mg Tab SUBLINGUAL Q5M PRN Chest Pain Nitroglycerin 1 inch 02/18/21 00:00 02/18/21 05:13 Nitroglycerin Oint 1 Inch/Gm Packet TOPICAL Not Given Q6HR ZARINA Pantoprazole Sodium 40 mg 02/18/21 09:00 Pantoprazole 40 Mg/10 Ml Vial IVP BID ZARINA Intake and Output 02/17/21 02/18/21 02/18/21 22:59 06:59 14:59 Intake Total 200 Balance 200 Intake: Oral 200 Other: Voiding Method Toilet Toilet # Voids 1 2 Weight 77.111 kg 02/17/21 17:46 02/17/21 17:46 Assessment and Plan Assessment: Assessment #1 epigastric and right upper quadrant tenderness #2 dilated common bile duct on the ultrasound with positive Ramesh sign Plan #1 acute coronary event was ruled out #2 the epigastric discomfort is suggestive of gastrointestinal etiology giving the above finding #3 we will obtain an echocardiogram #4 further recommendation to follow the gastrointestinal consultation
[2021-02-18 09:13] LABS: AST 822 U/L (14-36)
[2021-02-18] MEDS: PANTOPRAZOLE 40 MG/10 ML VIAL IVP SCH ×2 (09:14→22:13)
[2021-02-18 10:51] LABS: HCT 36.7 % (37.2-46.3); MCH 29.4 pg (27.0-32.0); MCHC 32.7 g/dL (32.0-37.0); Mean Platelet Volume 10.9 fL (9.5-12.2); Platelet Count 172 X 10*3/uL (140-440); RBC 4.08 X 10*6/uL (4.10-5.20); RDW 12.4 % (11.5-14.5); WBC 2.86 X 10*3/uL (4.50-10.00)
--- NOTE | 2021-02-18 11:46 | ECHOF ---
Referral Reason:CP MEASUREMENTS -------- HEIGHT: 160.0 cm WEIGHT: 77.1 kg BP: 105/50 RVIDd: 3.2 cm (< 3.3) IVSd: 1.2 cm (0.6 - 1.1) LVIDd: 3.2 cm (3.9 - 5.3) LVPWd: 1.1 cm (0.6 - 1.1) IVSs: 1.6 cm LVIDs: 1.8 cm LVPWs: 1.7 cm LA Diam: 3.4 cm (2.7 - 3.8) LAESV Index (A-L): 16.97 ml/m Ao Diam: 2.9 cm (2.0 - 3.7) AV Cusp: 2.1 cm (1.5 - 2.6) MV EXCURSION: 8.503 mm (> 18.000) MV EF SLOPE: 60 mm/s (70 - 150) EPSS: 0.6 cm MV E Cody: 0.69 m/s MV DecT: 279 ms MV A Cody: 0.76 m/s MV E/A Ratio: 0.91 AR PHT: 1077 ms RAP: 5.00 mmHg RVSP: 23.88 mmHg FINDINGS -------- Sinus rhythm. This was a technically good study. The left ventricular size is normal. There is borderline concentric left ventricular hypertrophy. Overall left ventricular systolic function is normal with, an EF between 60 - 65 %. The right ventricle is normal in size. The left atrium is normal in size. The right atrium is normal in size. Interatrial and interventricular septum intact. The aortic valve is trileaflet and appears structurally normal. There is mild aortic regurgitation. [id number] mitral regurgitation is present. Trace tricuspid regurgitation present. Right ventricular systolic pressure is normal at < 35 mmHg. There is no pulmonic regurgitation present. The aortic root size is normal. Normal inferior vena cava with normal inspiratory collapse consistent with estimated right atrial pre ssure of 5 mmHg. There is no pericardial effusion. CONCLUSIONS -------- 1. The left ventricular size is normal. 2. There is borderline concentric left ventricular hypertrophy. 3. Overall left ventricular systolic function is normal with, an EF between 60 - 65 %. 4. The aortic valve is trileaflet and appears structurally normal. 5. There is mild aortic regurgitation. 6. [id number] mitral regurgitation is present. 7. Trace tricuspid regurgitation present. 8. There is no pericardial effusion. [employer]: Velia Kirk RDCS
[2021-02-18] MEDS ORDERED: MORPHINE SULFATE 2 MG/ML SYRINGE IVP PRN (13:29)
--- NOTE | 2021-02-18 13:34 | P.PN ---
Subjective Progress Note Date: 02/18/21 Patient is still complaining of pain mostly in the right upper quadrant. She denies any fevers or chills. No nausea or vomiting. Objective - Vital Signs Vital signs: Vital Signs Temp 97.9 F 02/18/21 07:00 Pulse 70 02/18/21 07:00 Resp 19 02/18/21 07:00 BP 105/50 02/18/21 07:00 Pulse Ox 94 L 02/18/21 07:56 Intake & Output 02/17/21 02/18/21 02/18/21 18:59 06:59 18:59 Intake Total 200 Balance 200 Weight 77.111 kg 77.111 kg Intake: Oral 200 Other: Voiding Method Toilet Toilet # Voids 2 - Exam General: The patient is awake and alert, in no distress Eye: there is normal conjunctiva bilaterally. Neck: The neck is supple, there is no JVD. Cardiovascular: Normal S1-S2, no S3-S4, no murmurs. Respiratory: Lungs clear to auscultation bilaterally Gastrointestinal: Abdomen is soft, there is mild tenderness to palpation in the right upper quadrant Musculoskeletal: There is no pedal edema. Neurological:. Speech is normal. Skin: Skin is warm and dry - Labs CBC & Chem 7: 02/18/21 06:53 02/18/21 06:53 Labs: Abnormal Lab Results - Last 24 Hours (Table) 02/17/21 02/18/21 02/18/21 Range/Units 17:46 06:53 06:53 WBC 2.86 L (4.50-10.00) X 10*3/uL RBC 4.08 L (4.10-5.20) X 10*6/uL Hct 36.7 L (37.2-46.3) % Sodium 135 L (137-145) mmol/L Carbon Dioxide (22-30) mmol/L BUN (7-17) mg/dL Creatinine (0.52-1.04) mg/dL AST 153 H (14-36) U/L ALT 43 H (4-34) U/L Alkaline Phosphatase (38-126) U/L Total Protein 6.1 L (6.3-8.2) g/dL Albumin (3.5-5.0) g/dL LDL Cholesterol, Calc 109 H (0-99) mg/dL 02/18/21 Range/Units 06:53 WBC (4.50-10.00) X 10*3/uL RBC (4.10-5.20) X 10*6/uL Hct (37.2-46.3) % Sodium (137-145) mmol/L Carbon Dioxide 32 H (22-30) mmol/L BUN 21 H (7-17) mg/dL Creatinine 1.10 H (0.52-1.04) mg/dL AST 822 H (14-36) U/L ALT 388 H (4-34) U/L Alkaline Phosphatase 129 H (38-126) U/L Total Protein 5.4 L (6.3-8.2) g/dL Albumin 3.3 L (3.5-5.0) g/dL LDL Cholesterol, Calc (0-99) mg/dL Assessment and Plan Assessment: This is a 55-year-old female with past medical history noted below who presented to the emergency room with worsening epigastric discomfort and right upper quadrant pain. Patient was evaluated in the ER and admitted to the hospital for further management of her medical problems noted below. 1. Cholelithiasis with dilated common bile duct and suspected choledocholithiasis, noted on abdominal ultrasound. Patient had a positive sonographic Ramesh sign. No gallbladder wall thickening or edema noted. MRCP ordered for further evaluation. Gen. surgery consulted. May require ERCP. Pre liminary plan for laparoscopic cholecystectomy on Sunday 2. Chest discomfort, probably secondary to above. ACS ruled out. Patient was seen and evaluated by cardiology. Echocardiogram showed preserved ejection fraction with no significant valvular abnormalities. No further testing recommended at this time. 3. Mild acute kidney injury, most likely prerenal. Continue IV fluid hydration with normal saline at 75 mL per hour. Repeat lab work in the morning. 4. Transaminitis, secondary to suspected choledocholithiasis. Repeat lab work in the morning. 5. Chronic medical problems, underlying depression, degenerative joint disease of the lumbar spine, GERD 6. DVT prophylaxis with subcu heparin
[2021-02-18] MEDS ORDERED: traMADol 50 MG TAB PO PRN (13:35)
--- NOTE | 2021-02-18 15:01 | P.GSCN ---
History of Present Illness Consult date: 02/18/21 History of present illness: CHIEF COMPLAINT: Abdominal pain HISTORY OF PRESENT ILLNESS: This is a 55-year-old female with a known history of depression, GERD and prior surgical history of umbilical hernia repair. Patient presents to emergency room with complaints of bandlike pain across the upper abdomen that started yesterday around 4 PM. She has been nauseous. She reports pain after eating. And now her pain has mostly settled in the right upper quadrant. She denies any fever, chills or sweats. Cardiac cause of her symptoms has been ruled out. EKG normal sinus rhythm troponins negative 3 she was seen evaluated by cardiology at acute coronary event was ruled out. Patient had abdominal ultrasound completed showing cholelithiasis. There is dilation of the common bile duct and positive sonographic Ramesh sign. Choledocholithiasis is not excluded. There is no evidence of gallbladder wall thickening or pericholecystic edema seen. Patient is afebrile. White count normal. LFTs are trending upwards. PAST MEDICAL HISTORY: See list. PAST SURGICAL HISTORY: See list. MEDICATIONS: See list. ALLERGIES: See list. SOCIAL HISTORY: No illicit drug use. REVIEW OF SYSTEMS: CONSTITUTIONAL: Denies fever or chills. HEENT: Denies blurred vision, vision changes, or eye pain. Denies hemoptysis CARDIOVASCULAR: Denies chest pain or pressure. RESPIRATORY: No shortness of breath. GASTROINTESTINAL: See HPI for pertinent findings HEMATOLOGIC: Denies bleeding disorders. GENITOURINARY: Denies any blood in urine or increased urinary frequency. SKIN: Denies pruitis. Denies rash. PHYSICAL EXAM: VITAL SIGNS: Reviewed GENERAL: Well-developed in no acute distress. HEENT: No sclera icterus. Extraocular movements grossly intact. Moist buccal mucosa. Head is atraumatic, normocephalic. No nasal drainage. ABDOMEN: Soft. Nondistended. Right upper quadrant tenderness NEUROLOGIC: Alert and oriented. Cranial nerves II through XII grossly intact. LABORATORY DATA: WBC 2.86 hemoglobin 12 platelets 172 sodium 139 potassium 4.3 creatinine 1.10 Total bilirubin 0.6 AST 822 ALT 388 alk phos 129 LFTs trending upwards IMAGING: Abdominal ultrasound completed showing cholelithiasis. There is dilation of the common bile duct and positive sonographic Ramesh sign. Choledocholithiasis is not excluded. There is no evidence of gallbladder wall thickening or pericholecystic edema seen. ASSESSMENT: 1. Right upper quadrant abdominal pain 2. Choledocholithiasis PLAN: -Patient is scheduled for laparoscopic cholecystectomy on 02/21/[address] Roberts -GI service has ordered MRCP today -Continues to trend LFTs Physician Veterinary Practice Manager note has been reviewed by physician. Signing provider agrees with the documented findings, assessment, and plan of care. Past Medical History Past Medical History: GERD/Reflux, Hyperlipidemia Additional Past Medical History / Comment(s): Migraines, pain in lower back and hands, herniated disk in back, bulging disc in neck. History of Any Multi-Drug Resistant Organisms: None Reported Past Surgical History: Hernia Repair, Uterine Ablation Past Anesthesia/Blood Transfusion Reactions: Motion Sickness Past Psychological History: Depression Smoking Status: Former smoker Past Alcohol Use History: Rare Past Drug Use History: Marijuana - Past Family History Mother Family Medical History: Cancer Medications and Allergies Home Medications Medication Instructions Recorded Confirmed Type Citalopram Hydrobromide 40 mg PO DAILY@1800 06/07/16 02/17/21 History [Citalopram HBr] Gabapentin [Neurontin] 200 mg PO TID 06/07/16 02/17/21 History Hydrocodone/Acetaminophen [[place] 1 tab PO TID PRN 06/07/16 02/17/21 History 10-325] buPROPion HCL [Wellbutrin XL] 150 mg PO DAILY 02/17/21 02/17/21 History Allergies Allergy/AdvReac Type Severity Reaction Status Date / Time codeine Allergy Nausea Verified 02/17/21 17:45 Surgical - Exam Vital Signs Temp Resp 98.9 F 18 02/17/21 16:47 02/17/21 16:47 Results - Labs 02/18/21 06:53 02/18/21 06:53 Abnormal Lab Results - Last 24 Hours (Table) 02/17/21 02/18/21 02/18/21 Range/Units 17:46 06:53 06:53 WBC 2.86 L (4.50-10.00) X 10*3/uL RBC 4.08 L (4.10-5.20) X 10*6/uL Hct 36.7 L (37.2-46.3) % Sodium 135 L (137-145) mmol/L Carbon Dioxide (22-30) mmol/L BUN (7-17) mg/dL Creatinine (0.52-1.04) mg/dL AST 153 H (14-36) U/L ALT 43 H (4-34) U/L Alkaline Phosphatase (38-126) U/L Total Protein 6.1 L (6.3-8.2) g/dL Albumin (3.5-5.0) g/dL LDL Cholesterol, Calc 109 H (0-99) mg/dL 02/18/21 Range/Units 06:53 WBC (4.50-10.00) X 10*3/uL RBC (4.10-5.20) X 10*6/uL Hct (37.2-46.3) % Sodium (137-145) mmol/L Carbon Dioxide 32 H (22-30) mmol/L BUN 21 H (7-17) mg/dL Creatinine 1.10 H (0.52-1.04) mg/dL AST 822 H (14-36) U/L ALT 388 H (4-34) U/L Alkaline Phosphatase 129 H (38-126) U/L Total Protein 5.4 L (6.3-8.2) g/dL Albumin 3.3 L (3.5-5.0) g/dL LDL Cholesterol, Calc (0-99) mg/dL Diabetes panel 02/17/21 02/18/21 02/18/21 Range/Units 17:46 06:53 06:53 Sodium 135 L 139 (137-145) mmol/L Potassium 5.0 4.3 (3.5-5.1) mmol/L Chloride 106 104 (98-107) mmol/L Carbon Dioxide 25 32 H (22-30) mmol/L BUN 14 21 H (7-17) mg/dL Creatinine 0.74 1.10 H (0.52-1.04) mg/dL Glucose 87 98 (74-99) mg/dL Calcium 8.7 8.8 (8.4-10.2) mg/dL AST 153 H 822 H (14-36) U/L ALT 43 H 388 H (4-34) U/L Alkaline Phosphatase 57 129 H (38-126) U/L Total Protein 6.1 L 5.4 L (6.3-8.2) g/dL Albumin 3.7 3.3 L (3.5-5.0) g/dL Triglycerides 96 (<150) mg/dL HDL Cholesterol 45 (40-60) mg/dL Calcium panel 02/17/21 02/18/21 Range/Units 17:46 06:53 Calcium 8.7 8.8 (8.4-10.2) mg/dL Albumin 3.7 3.3 L (3.5-5.0) g/dL Pituitary panel 02/17/21 02/18/21 Range/Units 17:46 06:53 Sodium 135 L 139 (137-145) mmol/L Potassium 5.0 4.3 (3.5-5.1) mmol/L Chloride 106 104 (98-107) mmol/L Carbon Dioxide 25 32 H (22-30) mmol/L BUN 14 21 H (7-17) mg/dL Creatinine 0.74 1.10 H (0.52-1.04) mg/dL Glucose 87 98 (74-99) mg/dL Calcium 8.7 8.8 (8.4-10.2) mg/dL Adrenal panel 02/17/21 02/18/21 Range/Units 17:46 06:53 Sodium 135 L 139 (137-145) mmol/L Potassium 5.0 4.3 (3.5-5.1) mmol/L Chloride 106 104 (98-107) mmol/L Carbon Dioxide 25 32 H (22-30) mmol/L BUN 14 21 H (7-17) mg/dL Creatinine 0.74 1.10 H (0.52-1.04) mg/dL Glucose 87 98 (74-99) mg/dL Calcium 8.7 8.8 (8.4-10.2) mg/dL Total Bilirubin 0.8 0.6 (0.2-1.3) mg/dL AST 153 H 822 H (14-36) U/L ALT 43 H 388 H (4-34) U/L Alkaline Phosphatase 57 129 H (38-126) U/L Total Protein 6.1 L 5.4 L (6.3-8.2) g/dL Albumin 3.7 3.3 L (3.5-5.0) g/dL
[2021-02-18] MEDS: SODIUM CHLORIDE 0.9% 1,000 ML IV SCH (15:27)
[2021-02-18] MEDS: HYDROcodone/APAP 10-325MG 1 EACH TAB PO PRN (15:33)
--- NOTE | 2021-02-18 15:35 | MR ---
EXAMINATION TYPE: MR MRCP DATE OF EXAM: 02/18/2021 COMPARISON: CT abdomen and pelvis May 10, 2020. Gallbladder FEBRUARY 17, 2021. HISTORY: Upper abdominal pain, chest pain, elevated liver enzymes. Standard multiplanar, multisequence MRI departmental protocol Multiplanar, multisequence images of the abdomen were acquired. Diffusion weighted imaging was perfor med. Thin and thick slice MRCP imaging performed on independent workstation and reviewed. FINDINGS: Liver/gallbladder/pancreas/biliary system: Gallbladder shows innumerable intraluminal gallstones kelsey elating with ultrasound. No abnormal gallbladder wall thickening is identified. No surrounding fluid or fat stranding. Gallstones extend into the gallbladder neck seen best coronal image 14 for referenc e. There is tortuous cystic duct superior and to the right of this. There is no intrahepatic or extra hepatic biliary dilatation seen on MRCP images. Common bile duct measures up to 6 mm which is upper limits of normal in patient of this age, no significant change from comparison CT. Liver overall is n ormal in size without concerning solid or cystic mass. Pancreas is normal in size without concerning solid or cystic mass. Pancreatic duct appears within normal limits on MRCP images. Other: The spleen and both adrenal glands appear within normal limits. There is no concerning renal m ass or hydronephrosis. No suspicious bowel dilatation. No intra-abdominal ascites. Visualized osseous structures are intact. No greater than 3.0 cm AAA. Small size fixed hiatal hernia redemonstrated. IMPRESSION: Innumerable gallstones without secondary MRI evidence for acute cholecystitis. No suspici ous biliary dilatation or choledocholithiasis.
[2021-02-18] MEDS: CITALOPRAM HYDROBROMIDE 20 MG TAB PO SCH (18:23)
[2021-02-19] MEDS: NITROGLYCERIN OINT 1 INCH/GM PACKET TOPICAL SCH ×5 (00:19→22:58)
[2021-02-19] MEDS: HYDROcodone/APAP 10-325MG 1 EACH TAB PO PRN ×3 (01:09→21:26)
[2021-02-19] MEDS: SODIUM CHLORIDE 0.9% 1,000 ML IV SCH ×2 (01:12→13:25)
[2021-02-19 07:30] LABS: ALT 337 U/L (4-34); AST 357 U/L (14-36); African American GFR (CKD) >90 (>60 ml/min/1.73 sqM); Albumin 3.2 g/dL (3.5-5.0); Albumin/Globulin Ratio 1.5; Alkaline Phosphatase 139 U/L (38-126); Anion Gap 4 mmol/L; Blood Urea Nitrogen 13 mg/dL (7-17); Calcium 8.3 mg/dL (8.4-10.2); Carbon Dioxide 25 mmol/L (22-30); Chloride 107 mmol/L (98-107); Globulin 2.2 g/dL; Glucose 83 mg/dL (74-99); Non-African American GFR(CKD) >90 (>60 ml/min/1.73 sqM); Potassium 3.9 mmol/L (3.5-5.1); Sodium 136 mmol/L (137-145); Total Bilirubin 0.8 mg/dL (0.2-1.3); Total Protein 5.4 g/dL (6.3-8.2)
[2021-02-19] MEDS: GABAPENTIN 100 MG CAP PO SCH ×3 (08:49→21:26)
[2021-02-19] MEDS: PANTOPRAZOLE 40 MG TABLET PO SCH ×2 (08:49→17:21)
[2021-02-19] MEDS: HEPARIN SODIUM,PORCINE/PF 5,000 UNIT/0.5 ML SYRINGE SQ SCH ×3 (08:50→21:25)
--- NOTE | 2021-02-19 09:55 | P.CONS ---
History of Present Illness - Reason for Consult Consult date: 02/18/21 Abdominal pain Requesting physician: Tammi Reynoso - Chief Complaint Abdominal pain - History of Present Illness 55-year-old female with a medical history significant for GERD, hyperlipidemia and migraines who presented to the hospital due to chest and abdominal pain. She reported pain in the right upper quadrant of her abdomen and chest radiating into her back. She reports that the pain was severe and associated with nausea and right upper quadrant tenderness. She reports initially the pain that started in the epigastric region and then radiated to the right side. Pain was described as crushing. No associated vomiting or change in bowel habits however she did report nausea as stated. Patient denies any new medications, history of alcohol abuse, history of liver disease or elevated liver enzymes in the past. She has been having episodes of stomach issues are occurring on for a while. On presentation to the hospital patient had an ultrasound with a normal-appearing liver as well as cholelithiasis with no gallbladder wall thickening or pericholecystic fluid however CBD was dilated at 0.8 cm. Liver enzymes were found to be elevated on presentation with total bilirubin 0.8, alkaline phosphatase 57, AST 153 and ALT 43 and subsequently trended up at 0.6, 129, a 22 and 129 respectively. Review of Systems REVIEW OF SYSTEMS: CONSTITUTIONAL: Denies any fevers, chills, weight change or fatigue. CARDIOVASCULAR: Denies any chest pain, palpitations high or low blood pressures RESPIRATORY: Denies any shortness of breath, hemoptysis or cough. GENITOURINARY: No dysuria or hematuria. MUSCULOSKELETAL: No weakness reported. SKIN: Denies any new rashes or lesions, jaundice or pallor. PSYCHIATRIC: Denies any depression or anxiety. NEUROLOGY: Denies headache, denies any new focal deficits. EARS/NOSE/THROAT: No recent hearing change, congestion, nasal discharge or sore throat. EYES: No pain in eyes, discharge or change in vision. GASTROINTESTINAL: As per HPI. Past Medical History Past Medical History: GERD/Reflux, Hyperlipidemia Additional Past Medical History / Comment(s): Migraines, pain in lower back and hands, herniated disk in back, bulging disc in neck. History of Any Multi-Drug Resistant Organisms: None Reported Past Surgical History: Hernia Repair, Uterine Ablation Past Anesthesia/Blood Transfusion Reactions: Motion Sickness Past Psychological History: Depression Smoking Status: Former smoker Past Alcohol Use History: Rare Past Drug Use History: Marijuana - Past Family History Mother Family Medical History: Cancer Medications and Allergies Home Medications Medication Instructions Recorded Confirmed Type Citalopram Hydrobromide 40 mg PO DAILY@1800 06/07/16 02/17/21 History [Citalopram HBr] Gabapentin [Neurontin] 200 mg PO TID 06/07/16 02/17/21 History Hydrocodone/Acetaminophen [[place] 1 tab PO TID PRN 06/07/16 02/17/21 History 10-325] buPROPion HCL [Wellbutrin XL] 150 mg PO DAILY 02/17/21 02/17/21 History Allergies Allergy/AdvReac Type Severity Reaction Status Date / Time codeine Allergy Nausea Verified 02/17/21 17:45 Physical Exam Vitals: Vital Signs Temp Pulse Pulse Pulse Resp BP BP 02/18/21 14:07 98.1 F 70 18 126/79 02/18/21 07:56 02/18/21 07:00 97.9 F 70 19 105/50 02/18/21 02:00 98.2 F 80 16 116/76 02/18/21 01:53 73 84 16 02/17/21 23:22 73 84 16 02/17/21 22:31 98.1 F 84 16 145/96 02/17/21 21:47 73 16 128/89 02/17/21 21:27 98.9 F 73 16 02/17/21 21:00 74 16 126/86 Pulse Ox 02/18/21 14:07 96 02/18/21 07:56 94 L 02/18/21 07:00 95 02/18/21 02:00 96 02/18/21 01:53 02/17/21 23:22 02/17/21 22:31 95 02/17/21 21:47 95 02/17/21 21:27 95 02/17/21 21:00 95 Intake and Output 02/18/21 02/18/21 02/18/21 06:59 14:59 22:59 Intake Total 240 Balance 240 Intake: Oral 240 Other: Voiding Method Toilet Toilet # Voids 2 2 On physical examination, patient appears comfortable in no apparent distress. HEAD: Normocephalic, atraumatic. EYES: No scleral icterus. No conjunctival injection. MOUTH: No lesions, tongue midline. NECK: Trachea midline, no gross abnormalities. CHEST: Clear to auscultation with no wheezing or rhonchi appreciated. HEART: Regular rate and rhythm. ABDOMEN: Soft, mildly tender to palpation in the right upper quadrant or abdomen. Bowel sounds are positive. No organomegaly. No guarding or rigidity. EXTREMITIES: No pedal edema. SKIN: No rashes, no jaundice. NEUROLOGIC: Alert and oriented x3. No focal deficits. Results CBC & Chem 7: 02/18/21 06:53 02/19/21 06:22 Labs: Abnormal Lab Results - Last 24 Hours (Table) 02/18/21 02/18/21 02/18/21 Range/Units 06:53 06:53 06:53 WBC 2.86 L (4.50-10.00) X 10*3/uL RBC 4.08 L (4.10-5.20) X 10*6/uL Hct 36.7 L (37.2-46.3) % Carbon Dioxide 32 H (22-30) mmol/L BUN 21 H (7-17) mg/dL Creatinine 1.10 H (0.52-1.04) mg/dL AST 822 H (14-36) U/L ALT 388 H (4-34) U/L Alkaline Phosphatase 129 H (38-126) U/L Total Protein 5.4 L (6.3-8.2) g/dL Albumin 3.3 L (3.5-5.0) g/dL LDL Cholesterol, Calc 109 H (0-99) mg/dL US - abdomen: report reviewed (Ultrasound abdomen with findings of cholelithiasis, normal-appearing liver, with a dilated CBD at 0.8 cm.) Assessment and Plan (1) Elevated liver enzymes Narrative/Plan: 55-year-old female presenting with complaints of abdominal pain in the right upper quadrant of her abdomen initially and epigastric region lasting hours in duration described as crushing with associated nausea but no vomiting. Prior episodes have occurred. No history of new medications, alcohol abuse or liver disease. She was found to have ultrasound findings of numerous gallstones with a dilated CBD of 0.8 cm an elevation in her liver enzymes which trended up with total bilirubin 0.6, alk phos to 129, AST 822 and ALT 129. Unclear if symptoms are related to symptomatic cholelithiasis, a stone which was passed through the CBD with plans for MRCP to rule out choledocholithiasis. Current Visit: Yes Status: Acute Code(s): R74.8 - ABNORMAL LEVELS OF OTHER SERUM ENZYMES SNOMED Code(s): 321484757 (2) Right upper quadrant abdominal pain Current Visit: Yes Status: Acute Code(s): R10.11 - RIGHT UPPER QUADRANT PAIN SNOMED Code(s): 483290528 Plan: Supportive care Nothing by mouth MRCP ordered to rule out choledocholithiasis Continue monitor CBC, BMP, LFTs Surgical service has been consulted to see the patient If liver enzymes do not improve full liver serology will be ordered Further recommendations pending clinical course and findings of MRCP Thank you for allowing us to participate in the care of the patient
--- NOTE | 2021-02-19 12:18 | P.PN ---
Subjective Progress Note Date: 02/19/21 Principal diagnosis: Elevated liver enzymes, cholelithiasis The patient seen lying in bed today reporting abdominal pain is improved and that she is tolerated diet. No acute complaints. Objective - Vital Signs Vital signs: Vital Signs Temp 97.4 F L 02/19/21 07:00 Pulse 63 02/19/21 07:00 Resp 19 02/19/21 07:00 BP 114/60 02/19/21 07:00 Pulse Ox 95 02/19/21 07:00 Intake & Output 02/18/21 02/19/21 02/19/21 18:59 06:59 18:59 Intake Total 240 240 Balance 240 240 Intake: Oral 240 240 Other: Voiding Method Toilet Toilet Toilet # Voids 2 1 - Exam On physical examination, patient appears comfortable in no apparent distress. HEAD: Normocephalic, atraumatic. EYES: No scleral icterus. No conjunctival injection. MOUTH: No lesions, tongue midline. NECK: Trachea midline, no gross abnormalities. ABDOMEN: Soft, less tender to palpation. Bowel sounds are positive. No organomegaly. No guarding or rigidity. EXTREMITIES: No pedal edema. SKIN: No rashes, no jaundice. NEUROLOGIC: Alert and oriented x3. No focal deficits. - Labs CBC & Chem 7: 02/18/21 06:53 02/19/21 06:22 Labs: Abnormal Lab Results - Last 24 Hours (Table) 02/18/21 02/19/21 Range/Units 06:53 06:22 WBC 2.86 L (4.50-10.00) X 10*3/uL RBC 4.08 L (4.10-5.20) X 10*6/uL Hct 36.7 L (37.2-46.3) % Sodium 136 L (137-145) mmol/L Calcium 8.3 L (8.4-10.2) mg/dL AST 357 H (14-36) U/L ALT 337 H (4-34) U/L Alkaline Phosphatase 139 H (38-126) U/L Total Protein 5.4 L (6.3-8.2) g/dL Albumin 3.2 L (3.5-5.0) g/dL Assessment and Plan (1) Elevated liver enzymes Narrative/Plan: 55-year-old female presenting with complaints of abdominal pain in the right upper quadrant of her abdomen initially and epigastric region lasting hours in duration described as crushing with associated nausea but no vomiting. Prior episodes have occurred. No history of new medications, alcohol abuse or liver disease. She was found to have ultrasound findings of numerous gallstones with a dilated CBD of 0.8 cm an elevation in her liver enzymes which trended up with total bilirubin 0.6, alk phos to 129, AST 822 and ALT 129, and are improved today. MRCP performed in evaluation negative for any evidence of choledocholithiasis or ductal dilation. Innumerable gallstones seen on the MRI. Suspicion is for a gallstone which passed through the duct. Current Visit: Yes Status: Acute Code(s): R74.8 - ABNORMAL LEVELS OF OTHER SERUM ENZYMES SNOMED Code(s): 588748768 (2) Right upper quadrant abdominal pain Current Visit: Yes Status: Acute Code(s): R10.11 - RIGHT UPPER QUADRANT PAIN SNOMED Code(s): 117829382 Plan: Supportive care Okay for diet as per recommendations by surgery MRCP was negative for any choledocholithiasis Surgical service has been consulted to see the patient, with tentative plan for cholecystectomy on Sunday Liver enzymes are trending down Thank you for allowing us to participate in the care of the patient, the GI service will stand by, please call us back with any questions or concerns
--- NOTE | 2021-02-19 13:23 | P.PN ---
Progress Note - Text Progress Note Date: 02/19/21 The patient feels better. Her MRCP x-ray confirmed cholelithiasis. However there is no evidence of choledocholithiasis. Her liver enzymes have improved as well. On exam her vital signs show. Abdomen soft. Patient be scheduled for laparoscopically significant Sunday.
--- NOTE | 2021-02-19 14:24 | P.PN ---
Subjective Progress Note Date: 02/19/21 Patient is doing fairly well today. Her abdominal pain improved significantly. Liver enzymes are trending down. Objective - Vital Signs Vital signs: Vital Signs Temp 97.4 F L 02/19/21 07:00 Pulse 63 02/19/21 07:00 Resp 19 02/19/21 07:00 BP 114/60 02/19/21 07:00 Pulse Ox 95 02/19/21 07:00 Intake & Output 02/18/21 02/19/21 02/19/21 18:59 06:59 18:59 Intake Total 240 240 Balance 240 240 Intake: Oral 240 240 Other: Voiding Method Toilet Toilet Toilet # Voids 2 1 - Exam General: The patient is awake and alert, in no distress Eye: there is normal conjunctiva bilaterally. Neck: The neck is supple, there is no JVD. Cardiovascular: Normal S1-S2, no S3-S4, no murmurs. Respiratory: Lungs clear to auscultation bilaterally Gastrointestinal: Abdomen is soft, there is mild tenderness to palpation in the right upper quadrant Musculoskeletal: There is no pedal edema. Neurological:. Speech is normal. Skin: Skin is warm and dry - Labs CBC & Chem 7: 02/18/21 06:53 02/19/21 06:22 Labs: Abnormal Lab Results - Last 24 Hours (Table) 02/19/21 Range/Units 06:22 Sodium 136 L (137-145) mmol/L Calcium 8.3 L (8.4-10.2) mg/dL AST 357 H (14-36) U/L ALT 337 H (4-34) U/L Alkaline Phosphatase 139 H (38-126) U/L Total Protein 5.4 L (6.3-8.2) g/dL Albumin 3.2 L (3.5-5.0) g/dL Assessment and Plan Assessment: This is a 55-year-old female with past medical history noted below who presented to the emergency room with worsening epigastric discomfort and right upper quadrant pain. Patient was evaluated in the ER and admitted to the hospital for further management of her medical problems noted below. 1. Cholelithiasis with dilated common bile duct and suspected choledocholithiasis, noted on abdominal ultrasound. Patient had a positive sonographic Ramesh sign. No gallbladder wall thickening or edema noted. MRCP showed no evidence of biliary dilated patient or choledocholithiasis.. Gen. surgery consulted. Stone may have passed already and liver enzymes are trending down.. Patient was seen and evaluated by GI and general surgery. Plan for laparoscopic cholecystectomy on Sunday 2. Chest discomfort, probably secondary to above. ACS ruled out. Patient was seen and evaluated by cardiology. Echocardiogram showed preserved ejection frac tion with no significant valvular abnormalities. No further testing recommended at this time. 3. Mild acute kidney injury, most likely prerenal. Resolved with IV fluid hydration 4. Transaminitis, secondary to suspected choledocholithiasis. Liver enzymes trending down 5. Chronic medical problems, underlying depression, degenerative joint disease of the lumbar spine, GERD 6. DVT prophylaxis with subcu heparin
[2021-02-19] MEDS: CITALOPRAM HYDROBROMIDE 20 MG TAB PO SCH (17:24)
[2021-02-20] MEDS: PANTOPRAZOLE 40 MG TABLET PO SCH (07:24)
[2021-02-20] MEDS: HEPARIN SODIUM,PORCINE/PF 5,000 UNIT/0.5 ML SYRINGE SQ SCH ×3 (07:24→23:39)
[2021-02-20] MEDS: GABAPENTIN 100 MG CAP PO SCH ×3 (09:04→21:46)
[2021-02-20] MEDS: NITROGLYCERIN OINT 1 INCH/GM PACKET TOPICAL SCH ×3 (12:12→23:40)
--- NOTE | 2021-02-20 12:40 | P.PN ---
Subjective Progress Note Date: 02/20/21 Patient is doing fairly well today. She denies any abdominal pain. Lab work from this morning still pending. Objective - Vital Signs Vital signs: Vital Signs Temp 97.8 F 02/20/21 07:00 Pulse 61 02/20/21 07:00 Resp 18 02/20/21 07:00 BP 119/76 02/20/21 07:00 Pulse Ox 95 02/20/21 08:57 Intake & Output 02/19/21 02/20/21 02/20/21 18:59 06:59 18:59 Intake Total 660 240 Balance 660 240 Intake: Oral 660 240 Other: Voiding Method Toilet Toilet # Voids 3 1 - Exam General: The patient is awake and alert, in no distress Eye: there is normal conjunctiva bilaterally. Neck: The neck is supple, there is no JVD. Cardiovascular: Normal S1-S2, no S3-S4, no murmurs. Respiratory: Lungs clear to auscultation bilaterally Gastrointestinal: Abdomen is soft, nontender Musculoskeletal: There is no pedal edema. Neurological:. Speech is normal. Skin: Skin is warm and dry - Labs CBC & Chem 7: 02/18/21 06:53 02/19/21 06:22 Assessment and Plan Assessment: This is a 55-year-old female with past medical history noted below who presented to the emergency room with worsening epigastric discomfort and right upper quadrant pain. Patient was evaluated in the ER and admitted to the hospital for further management of her medical problems noted below. 1. Cholelithiasis with dilated common bile duct and suspected choledocholithi asis, noted on abdominal ultrasound. Patient had a positive sonographic Ramesh sign. No gallbladder wall thickening or edema noted. MRCP showed no evidence of biliary dilation or choledocholithiasis.. Gen. surgery and GI consulted. Stone may have passed already and liver enzymes are trending down. Plan for laparoscopic cholecystectomy on Sunday 2. Chest discomfort, probably secondary to above. ACS ruled out. Patient was seen and evaluated by cardiology. Echocardiogram showed preserved ejection fraction with no significant valvular abnormalities. No further testing recommended at this time. 3. Mild acute kidney injury, most likely prerenal. Resolved with IV fluid hydration 4. Transaminitis, secondary to suspected choledocholithiasis. Liver enzymes trending down 5. Chronic medical problems, underlying depression, degenerative joint disease of the lumbar spine, GERD 6. DVT prophylaxis with subcu heparin
--- NOTE | 2021-02-20 15:40 | P.PN ---
Progress Note - Text Progress Note Date: 02/20/21 Patient's feeling better. Her abdomen is improved. On exam vital signs stable. Abdomen soft. Cholelithiasis. Patient undergo laparoscopic cholecystectomy in the a.m.
[2021-02-20] MEDS: CITALOPRAM HYDROBROMIDE 20 MG TAB PO SCH (17:07)
[2021-02-20] MEDS: SODIUM CHLORIDE 0.9% 1,000 ML IV SCH (21:46)
[2021-02-21] MEDS: NITROGLYCERIN OINT 1 INCH/GM PACKET TOPICAL SCH ×5 (04:43→21:12)
[2021-02-21 06:16] LABS: Basophils % (A) 1 %; Eosinophils # (A) 0.3 k/uL (0-0.7); Eosinophils % (A) 7 %; HCT 35.9 % (34.0-46.0); HGB 12.4 gm/dL (11.4-16.0); Lymphocytes # (A) 1.8 k/uL (1.0-4.8); Lymphocytes % (A) 47 %; MCH 30.4 pg (25.0-35.0); MCHC 34.4 g/dL (31.0-37.0); MCV 88.3 fL (80.0-100.0); Mean Platelet Volume 7.7; Monocytes # (A) 0.2 k/uL (0-1.0); Monocytes % (A) 4 %; Neutrophils # (A) 1.5 k/uL (1.3-7.7); Neutrophils % (A) 39 %; Platelet Count 175 k/uL (150-450); RBC 4.07 m/uL (3.80-5.40); RDW 12.4 % (11.5-15.5); WBC 3.9 k/uL (3.8-10.6)
[2021-02-21 06:30] LABS: ALT 165 U/L (4-34); AST 81 U/L (14-36); African American GFR (CKD) >90 (>60 ml/min/1.73 sqM); Albumin 3.2 g/dL (3.5-5.0); Albumin/Globulin Ratio 1.5; Alkaline Phosphatase 131 U/L (38-126); Anion Gap 2 mmol/L; Blood Urea Nitrogen 20 mg/dL (7-17); Calcium 8.6 mg/dL (8.4-10.2); Carbon Dioxide 30 mmol/L (22-30); Chloride 105 mmol/L (98-107); Globulin 2.2 g/dL; Glucose 90 mg/dL (74-99); Non-African American GFR(CKD) 84 (>60 ml/min/1.73 sqM); Potassium 3.9 mmol/L (3.5-5.1); Sodium 137 mmol/L (137-145); Total Bilirubin 0.4 mg/dL (0.2-1.3); Total Protein 5.4 g/dL (6.3-8.2)
[2021-02-21] MEDS ORDERED: SCOPOLAMINE 1.5MG/72HR PATCH TRANSDERM ONE ×2 (07:51→10:42)
[2021-02-21] MEDS ORDERED: DEXAMETHASONE SOD PHOSPHATE 4 MG/ML 1 ML VIAL IV ONE (07:51)
[2021-02-21] MEDS ORDERED: ONDANSETRON 4 MG/2 ML VIAL IVP ONE (07:51)
--- NOTE | 2021-02-21 10:07 | P.PN ---
Subjective Progress Note Date: 02/21/21 Patient is doing fairly well today. She denies any abdominal pain. She is scheduled for surgery the next couple hours Objective - Vital Signs Vital signs: Vital Signs Temp 97.7 F 02/21/21 06:41 Pulse 64 02/21/21 06:41 Resp 18 02/21/21 08:00 BP 121/79 02/21/21 06:41 Pulse Ox 96 02/21/21 06:41 Intake & Output 02/20/21 02/21/21 02/21/21 18:59 06:59 18:59 Intake Total 660 Balance 660 Intake: Oral 660 Other: Voiding Method Toilet # Voids 3 2 # Bowel Movements 1 - Exam General: The patient is awake and alert, in no distress Eye: there is normal conjunctiva bilaterally. Neck: The neck is supple, there is no JVD. Cardiovascular: Normal S1-S2, no S3-S4, no murmurs. Respiratory: Lungs clear to auscultation bilaterally Gastrointestinal: Abdomen is soft, nontender Musculoskeletal: There is no pedal edema. Neurological:. Speech is normal. Skin: Skin is warm and dry - Labs CBC & Chem 7: 02/21/21 05:45 02/21/21 05:45 Labs: Abnormal Lab Results - Last 24 Hours (Table) 02/21/21 Range/Units 05:45 BUN 20 H (7-17) mg/dL AST 81 H (14-36) U/L ALT 165 H (4-34) U/L Alkaline Phosphatase 131 H (38-126) U/L Total Protein 5.4 L (6.3-8.2) g/dL Albumin 3.2 L (3.5-5.0) g/dL Assessment and Plan Assessment: This is a 55-year-old female with past medical history noted below who presented to the emergency room with worsening epigastric discomfort and right upper quadrant pain. Patient was evaluated in the ER and admitted to the hospital for further management of her medical problems noted below. 1. Cholelithiasis with dilated common bile duct and suspected choledocholithiasis, noted on abdominal ultrasound. Patient had a positive sono graphic Ramesh sign. No gallbladder wall thickening or edema noted. MRCP showed no evidence of biliary dilation or choledocholithiasis.. Gen. surgery and GI consulted. Stone may have passed already and liver enzymes are trending down. Plan for laparoscopic cholecystectomy today 2. Chest discomfort, probably secondary to above. ACS ruled out. Patient was seen and evaluated by cardiology. Echocardiogram showed preserved ejection fraction with no significant valvular abnormalities. No further testing recommended at this time. 3. Mild acute kidney injury, most likely prerenal. Resolved with IV fluid hydration 4. Transaminitis, secondary to suspected choledocholithiasis. Liver enzymes trending down 5. Chronic medical problems, underlying depression, degenerative joint disease of the lumbar spine, GERD 6. DVT prophylaxis with subcu heparin
[2021-02-21] MEDS ORDERED: IV FLUID CONTINUATION 1,000 ML IV ONE (10:30)
[2021-02-21] MEDS: HEPARIN SODIUM,PORCINE/PF 5,000 UNIT/0.5 ML SYRINGE SQ SCH ×3 (10:43→23:20)
[2021-02-21] MEDS ORDERED: LIDOCAINE 1%-EPI 1:100,000 20 ML VIAL SQ ONE ×2 (11:59→12:18)
[2021-02-21] MEDS ORDERED: HYDROmorphone (PF) 1 MG/ML ONE (12:00)
[2021-02-21] MEDS ORDERED: KETOROLAC 15 MG/ML 1 ML VIAL ONE (12:00)
[2021-02-21] MEDS ORDERED: MIDAZOLAM 2 MG/2 ML VIAL ONE (12:00)
[2021-02-21] MEDS ORDERED: NEOSTIGMINE 1 MG/ML 10 ML VIAL ONE (12:00)
[2021-02-21] MEDS ORDERED: PROPOFOL 10 MG/ML 20 ML VIAL IV ONE (12:00)
[2021-02-21] MEDS ORDERED: ROCURONIUM 10 MG/ML (5 ML VIAL) IV ONE (12:00)
[2021-02-21] MEDS ORDERED: fentaNYL (PF) 50 MCG/ML 2 ML AMP ONE (12:00)
[2021-02-21] MEDS ORDERED: SUCCINYLCHOLINE CHLORIDE 100 MG/5 ML SYR IV ONE (12:00)
[2021-02-21] MEDS ORDERED: GLYCOPYRROLATE 0.2 MG/ML 2 ML VIAL ONE (12:00)
[2021-02-21] MEDS ORDERED: LACTATED RINGERS 1,000 ML IV ONE (12:30)
[2021-02-21] MEDS ORDERED: HYDROmorphone 1 MG/ML 1 ML SYRINGE IVP PRN (12:47)
--- NOTE | 2021-02-21 12:47 | P.OP ---
Date of Procedure: 02/21/21 Preoperative Diagnosis: Cholelithiasis Postoperative Diagnosis: Cholelithiasis Procedure(s) Performed: Laparoscopic cholecystectomy Anesthesia: VIGNESH Surgeon: Dino Roberts Estimated Blood Loss (ml): 5 Pathology: other (All bladder) Condition: stable Disposition: PACU Description of Procedure: The patient was placed on the operating table. The patient received a general endotracheal tube anesthesia. The patients abdomen was prepped and draped in the usual sterile fashion. Through an infraumbilical stab incision, the fascia of the anterior abdominal wall was grasped with a pair of Kochers and then the Veress needle was placed in the peritoneal cavity. Position of the Veress needle was confirmed with positive drop test. The abdomen was then insufflated. After adequate insufflation, the 10 mm trocar was placed in the peritoneal cavity. Following this the laparoscope was placed in the peritoneal cavity. The patient was placed in the head-up, right side up position and then a 5 mm trocar was placed in the right lateral and right subcostal position under direct visualization. A 8 mm trocar was placed in the epigastric position. The gallbladder was grasped in the fundus and infundibulum. Traction on the gallbladder was placed in the lateral and the cephalad positions. The triangle of Calot was visualized.. The cystic duct was bluntly dissected until the union of the cystic duct and common bile duct was seen. A critical view of safety was achieved. The cystic duct was then divided and sealed with the Harmonic scissors. A PDS Endoloop was then placed throughout the cystic duct stump. The cystic artery divided and sealed with the Harmonic scissors. The gallbladder was then removed from the liver bed using Harmonic scissors. The gallbladder was then extracted through the epigastric port site. Operative field was checked for any bleeding spots and Harmonic scissors was used to coagulate the liver bed. The abdomen was irrigated. The trocars were removed. The skin was closed using interrupted 3-0 Vicryl suture. Dermabond dressing were applied. The patient tolerated the procedure well.
[2021-02-21] MEDS: fentaNYL (PF) 50 MCG/ML 2 ML AMP IV PRN ×2 (12:57→13:06)
[2021-02-21] MEDS: PANTOPRAZOLE 40 MG TABLET PO SCH (13:59)
[2021-02-21] MEDS: GABAPENTIN 100 MG CAP PO SCH ×3 (13:59→20:35)
[2021-02-21] MEDS: LACTATED RINGERS 1,000 ML IV SCH ×2 (13:59→23:21)
[2021-02-21] MEDS: SODIUM CHLORIDE 0.9% 1,000 ML IV SCH ×2 (14:15→20:35)
[2021-02-21] MEDS: HYDROcodone/APAP 10-325MG 1 EACH TAB PO PRN (15:41)
[2021-02-21] MEDS: CITALOPRAM HYDROBROMIDE 20 MG TAB PO SCH (17:08)
[2021-02-21] MEDS ORDERED: ACETAMINOPHEN TAB 325 MG TAB PO STA (19:46)
[2021-02-21] MEDS ORDERED: ASPIRIN-ACET-CAFF 250-250-65MG 1 EACH TAB PO PRN (22:57)
[2021-02-22 08:02] VITALS: RESP 16
[2021-02-22] MEDS: GABAPENTIN 100 MG CAP PO SCH (08:40)
[2021-02-22] MEDS: HEPARIN SODIUM,PORCINE/PF 5,000 UNIT/0.5 ML SYRINGE SQ SCH (08:40)
[2021-02-22] MEDS: PANTOPRAZOLE 40 MG TABLET PO SCH (08:40)
[2021-02-22] MEDS: HYDROcodone/APAP 10-325MG 1 EACH TAB PO PRN (08:44)
--- NOTE | 2021-02-22 11:48 | P.PN ---
Subjective Progress Note Date: 02/22/21 CHIEF COMPLAINT: Abdominal pain HISTORY OF PRESENT ILLNESS: Patient is status post laparoscopic cholecystectomy. Patient tolerated surgery well. Her pain is controlled. She did have a headache yesterday but this has improved. She is passing gas. Denies any nausea or vomiting. She is tolerating regular diet. She's afebrile. Patient seen and examined with Dr. navarro PHYSICAL EXAM: VITAL SIGNS: Reviewed. GENERAL: Well-developed in no acute distress. HEENT: No sclera icterus. Extraocular movements grossly intact. Moist buccal mucosa. Head is atraumatic, normocephalic. ABDOMEN: Soft. Nondistended. Incision sites clean dry and intact. She did have one upper abdominal incision with minimal bleeding. NEUROLOGIC: Alert and oriented. Cranial nerves II through XII grossly intact. ASSESSMENT: 1. Cholelithiasis status post laparoscopic cholecystectomy PLAN: -Patient is stable from surgical standpoint for discharge -Continue her home pain medication as needed Physician Research [employer] Quality Control Qc note has been reviewed by physician. Signing provider agrees with the documented findings, assessment, and plan of care. Objective - Vital Signs Vital signs: Vital Signs Temp 98.5 F 02/22/21 07:10 Pulse 64 02/22/21 07:10 Resp 16 02/22/21 07:10 BP 134/77 02/22/21 07:10 Pulse Ox 94 L 02/22/21 07:10 Intake & Output 02/21/21 02/22/21 02/22/21 18:59 06:59 18:59 Intake Total 1550 Output Total 5 Balance 1545 Weight 77.111 kg Intake: IV 1550 Output: Estimated Blood Loss 5 Other: Voiding Method Toilet # Voids 1 2 - Labs CBC & Chem 7: 02/21/21 05:45 02/21/21 05:45
[2021-02-22] MEDS: NITROGLYCERIN OINT 1 INCH/GM PACKET TOPICAL SCH (12:04)
[2021-02-22 13:58] VITALS: BP 129/79; PULSE 80; TEMP 98.1
--- NOTE | 2021-02-22 14:34 | P.DS ---
Providers Date of admission: 02/19/21 14:30 Expected date of discharge: 02/22/21 Attending physician: Tammi Reynoso MD Consults: 02/17/21 20:19 Consult Physician Urgent Consulting Provider: [facility] Consult Reason/Comments: Chest pain Do you want consulting provider notified?: Yes 02/18/21 08:15 Consult Physician Routine Consulting Provider: Dino Roberts Consult Reason/Comments: acute osito? Do you want consulting provider notified?: Yes Primary care physician: Frankie Giang [place] Hospital Course: This is a 55-year-old female with past medical history noted below who presented to the emergency room with worsening epigastric discomfort and right upper quadrant pain. Patient was evaluated in the ER and admitted to the hospital for further management of her medical problems noted below. 1. Cholelithiasis with dilated common bile duct and suspected choledocholithiasis, noted on abdominal ultrasound. Patient had a positive sonographic Ramesh sign. No gallbladder wall thickening or edema noted. MRCP showed no evidence of biliary dilation or choledocholithiasis.. Gen. surgery and GI consulted. Stone may have passed already and liver enzymes are trending down. Patient underwent laparoscopic cholecystectomy. She was cleared by general surgery for discharge. 2. Chest discomfort, probably secondary to above. ACS ruled out. Patient was seen and evaluated by cardiology. Echocardiogram showed preserved ejection fraction with no significant valvular abnormalities. No further testing recommended at this time. 3. Mild acute kidney injury, most likely prerenal. Resolved with IV fluid hydration 4. Transaminitis, secondary to suspected choledocholithiasis. Liver enzymes trending down 5. Chronic medical problems, underlying depression, degenerative joint disease of the lumbar spine, GERD Patient will be discharged home in a stable condition. For further details about this hospitalization please refer to the electronic chart. Plan - Discharge Summary Discharge Rx Participant: Yes New Discharge Prescriptions: Continue Hydrocodone/Acetaminophen [Summit 10-325] 1 tab PO TID PRN PRN Reason: Pain Gabapentin [Neurontin] 200 mg PO TID Citalopram Hydrobromide [Citalopram HBr] 40 mg PO DAILY@1800 buPROPion HCL [Wellbutrin XL] 150 mg PO DAILY Discharge Medication List Citalopram Hydrobromide [Citalopram HBr] 40 mg PO DAILY@1800 06/07/16 [History] Gabapentin [Neurontin] 200 mg PO TID 06/07/16 [History] Hydrocodone/Acetaminophen [Summit 10-325] 1 tab PO TID PRN 06/07/16 [History] buPROPion HCL [Wellbutrin XL] 150 mg PO DAILY 02/17/21 [History] Follow up Appointment(s)/Referral(s): Gianni Carty MD [STAFF PHYSICIAN] - 2 Weeks Frankie Brown MD [Primary Care Provider] - 1-2 days Dino Roberts MD [STAFF PHYSICIAN] - 03/03/21 3:00 pm (Follow up with Dr. Roberts in the office as scheduled for you) Patient Instructions/Handouts: *Surgery [facility] - ([facility]) Laparoscopic Cholecystectomy, *Surgery [facility] - Scopalamine Patch Instructions Activity/Diet/Wound Care/Special Instructions: No driving while taking Summit No lifting over 10 pounds You may shower. No soaking or tub baths for 2 weeks Very light activity until you are reevaluated at your follow up appointment with your surgeon Discharge Disposition: HOME SELF-CARE
== END 2021-02-22 16:04 | disposition home or self-care (01) ==
LOC: EC 16:45 → 6NMEDSUR 20:15 → OBSVTOIN 02-19 14:30 → INTOOBSV 02-19 14:30 → UNDODISIN 02-22 16:04
PROVIDERS: ADMIT Internal Medicine; ATTEND Internal Medicine
PROC: 0FT44ZZ Resection of Gallbladder, Percutaneous Endoscopic Approach (ICD-10-PCS; principal; 2021-02-21 11:25)
DX: K80.12 Calculus of gallbladder with acute and chronic cholecystitis without obstruction (principal); N17.9 Acute kidney failure, unspecified; K83.8 Other specified diseases of biliary tract; G43.909 Migraine, unspecified, not intractable, without status migrainosus; K21.9 Gastro-esophageal reflux disease without esophagitis; R74.01 Elevation of levels of liver transaminase levels; M47.816 Spondylosis without myelopathy or radiculopathy, lumbar region; M50.20 Other cervical disc displacement, unspecified cervical region; E78.5 Hyperlipidemia, unspecified; I08.0 Rheumatic disorders of both mitral and aortic valves; G62.9 Polyneuropathy, unspecified; M19.90 Unspecified osteoarthritis, unspecified site; F32.9 Major depressive disorder, single episode, unspecified; Z20.822 Contact with and (suspected) exposure to COVID-19; Z87.891 Personal history of nicotine dependence; Z79.899 Other long term (current) drug therapy; Z88.5 Allergy status to narcotic agent; Z98.890 Other specified postprocedural states; Z86.010 Personal history of colon polyps; Z82.49 Family history of ischemic heart disease and other diseases of the circulatory system; Z80.9 Family history of malignant neoplasm, unspecified
CPT/HCPCS: 96372; 96375; 93005 ×2; 96374; 99285; 36415; 94760 ×2; 93306; 85379; 88304; 80061; 80053 ×4; 83690; 83735; 84484 ×2; 85025 ×2; 85027; 85610; 85730; 87635; 71046; 76705; 74181; 47562; G0378 ×6; J2250; J1100; J2710; J0690; J2405; J3010; J1170; J1885 ×2; J0330; J2704; C9113; J1644 ×5

== ENCOUNTER → 2022-02-06 | Outpatient (CLI) | payer BC ==
--- NOTE | 2022-02-06 12:50 | US ---
EXAMINATION TYPE: US thyroid st tissue head/neck DATE OF EXAM: 02/06/2022 COMPARISON: NONE CLINICAL HISTORY: R09.89 OTH SYMPTOMS AND SIGNS INVOLVING THE CIRC A. Patient states having a feeling something is in throat. No thyroid labs. GLAND SIZE: Right Lobe: 3.6 x 1.5 x 1.3 cm Overall Parenchyma: heterogenous Left Lobe: 3.2 x 1.2 x 1.3 cm Overall Parenchyma: heterogeneous Isthmus Thickness: 0.2 cm NODULES RIGHT: # of nodules measured on right: 0 LEFT: # of nodules measured on left: 0 ISTHMUS: # of nodules measured in the isthmus: 0 Bilateral neck scanned, no evidence of lymphadenopathy. IMPRESSION: Bilateral nonspecific glandular heterogeneity. 2017 ACR TI-RADS LEVEL: *Highest TI-RADS level nodule reported
== END | disposition home or self-care (01) ==
LOC: RADUSWWP 12:17
PROVIDERS: ATTEND Family Medicine
DX: E07.89 Other specified disorders of thyroid (principal)
CPT/HCPCS: 76536

== ENCOUNTER → 2023-11-16 | Outpatient (CLI) | payer BC ==
--- NOTE | 2023-11-20 08:44 | MM ---
Reason for Exam: Screening (asymptomatic). Last mammogram was performed 4 year(s) and 3 month(s) ago. Patient History: Menarche at age 14. First Full-Term at age 19. Postmenopausal. Patient used Hormonal Contraceptives for 6 years. Risk Values: Kavitha 5 year model risk: 0.8%. NCI Lifetime model risk: 5.2%. Prior Study Comparison: 08/14/2008 Screening Mammogram, [place]. 09/29/2011 Screening Mammogram, [place]. 08/26/2019 Bilateral Diagnostic Mammogram, [facility]. Tissue Density: The breast tissue is heterogeneously dense. This may lower the sensitivity of mammography. Findings: Analyzed By CAD. In the right breast, 2 areas of medially located asymmetric density and become more defined and further evaluation is recommended. In the left breast, an area of focal asymmetry central outer aspect has become more defined. Further evaluation recommended. Also in the left breast, an area medial asymmetric density has become more defined. Further evaluation recommended. Otherwise, no significant change. Overall Assessment: Incomplete: need additional imaging evaluation, BI-RAD 0 Management: Special View Mammogram of both breasts. Diagnostic Breast Ultrasound of both breasts. Additional views right breast including spot 3-D CC, 3-D CC rolled lateral, and 3-D LM views. Additional spot 3-D views left breast for the central focal asymmetry. For the medial asymmetric density in the left breast, spot 3-D CC, 3-D CC rolled, and 3-D LM views.. Targeted ultrasound for any persisting abnormality. [facility] will attempt to contact patient to return for supplemental views and ultrasound if indicated. Electronically signed and approved by: Navdeep Diaz M.D. Radiologist
== END | disposition home or self-care (01) ==
LOC: RADMAMWWP 14:45
PROVIDERS: ATTEND Family Medicine
DX: Z12.31 Encounter for screening mammogram for malignant neoplasm of breast (principal); Z78.0 Asymptomatic menopausal state
CPT/HCPCS: 77063; 77067

== ENCOUNTER → 2023-11-26 | Outpatient (CLI) | payer BC ==
--- NOTE | 2023-11-26 14:38 | MM ---
Reason for Exam: Additional evaluation requested from abnormal screening. Last screening mammogram was performed less than 1 month ago. Patient History: Menarche at age 14. First Full-Term at age 19. Postmenopausal. Patient has history of breast feeding. Patient used Hormonal Contraceptives for 6 years. Paternal cousin had breast cancer at or over age 50. Risk Values: Kavitha 5 year model risk: 0.9%. NCI Lifetime model risk: 5.1%. Prior Study Comparison: 08/14/2008 Screening Mammogram, [place]. 09/29/2011 Screening Mammogram, [place]. 08/26/2019 Bilateral Diagnostic Mammogram, [facility]. 11/16/2023 Bilateral MG 3D screening mammo w/cad, [facility]. Tissue Density: The breast tissue is heterogeneously dense. This may lower the sensitivity of mammography. Findings: Analyzed By CAD. Right breast: No distinct persistent nodule or mass. Left breast: Persistent nodule lower inner left breast 7.4 cm from the nipple and measuring proximately 1.5 cm in size. Ultrasound is advised. Overall Assessment: Incomplete: need additional imaging evaluation, BI-RAD 0 Management: Diagnostic Breast Ultrasound of the left breast. . Results were given to the patient verbally at the time of exam. Patient should continue monthly self-breast exams. A clinical breast exam by your physician is recommended on an annual basis. This exam should not preclude additional follow-up of suspicious palpable abnormalities. Note on Kavitha scores and lifetime risk: 1. A Kavitha score greater than 3% is considered moderate risk. If this is the case, consider specialist referral to assess eligibility for a risk reducing agent. 2. If overall lifetime risk for the development of breast cancer is 20% or higher, the patient may qualify for future screening with alternating mammogram and breast MRI. Electronically signed and approved by: Laurent Hahn M.D. Radiologis
--- NOTE | 2023-11-26 14:38 | USB ---
Reason for Exam: Additional evaluation requested from prior study. Patient History: Menarche at age 14. First Full-Term at age 19. Postmenopausal. Patient has history of breast feeding. Patient used Hormonal Contraceptives for 6 years. Paternal cousin had breast cancer at or over age 50. Risk Values: Kavitha 5 year model risk: 0.9%. NCI Lifetime model risk: 5.1%. Technique: Method: Targeted. Prior Study Comparison: 09/29/2011 Screening Mammogram, [place]. 08/26/2019 Bilateral Diagnostic Mammogram, [facility]. 11/16/2023 Bilateral MG 3D screening mammo w/cad, [facility]. Findings: The lower inner quadrant of the left breast, the axilla of the left breast and the retroareolar of the left breast were scanned. Scattered cysts and mild prominence of the ducts noted. No solid masses seen.. Overall Assessment: Benign, BI-RAD 2 Management: Screening Mammogram of both breasts in 1 year. A clinical breast exam by your physician is recommended on an annual basis and results should be correlated with mammographic findings. This exam should not preclude additional follow-up of suspicious palpable abnormalities. Results were given to the patient verbally at the time of exam. Electronically signed and approved by: Laurent Hahn M.D. Radiologis
== END | disposition home or self-care (01) ==
LOC: RADMAMWWP 13:05
PROVIDERS: ATTEND Family Medicine
DX: R92.333 Mammographic heterogeneous density, bilateral breasts (principal); Z80.3 Family history of malignant neoplasm of breast; Z78.0 Asymptomatic menopausal state
CPT/HCPCS: 77062; 77066